=== PATIENT | male | born 1975 | race Caucasian/White ===

== ENCOUNTER 2018-11-03 17:33 | Inpatient (IN) | payer MEDICAID, OTHER ==
--- NOTE | 2018-11-03 20:48 | XRay Report ---
PROCEDURE: XR FOOT 3+V RT TECHNIQUE: Frontal, lateral, oblique views right foot HISTORY: puncture wound with redness,pain,swelling stepped on a nail. Injury on the bottom of the nallely t. COMPARISONS: None FINDINGS: There is diffuse soft tissue swelling of the forefoot. There is no evidence of gas within the soft tissues. There is no evidence of radiopaque foreign body. The bony structures are without evidence of fracture, subluxation, lytic or blastic change or periost eal reaction. IMPRESSION: 1. Soft tissue swelling without plain film evidence of acute bony abnormality. If further imaging is required, MRI may be helpful. This document is electronically signed by Sarah Gonzales MD., November 03 2018 08:46:52 PM ET
[2018-11-03] MEDS ORDERED: NACL 0.9% 1000 ML IV ONE (21:46)
[2018-11-03] MEDS ORDERED: CLEOCIN 900 MG/50 mL 900 MG/50 ML BAG IV ONE (21:48)
[2018-11-03] MEDS ORDERED: BOOSTRIX IM ONE (21:52)
[2018-11-03 22:20] LABS: Basophils % (Auto) 0.2 % (0.0-1.8); Eosinophils # (Auto) 0.1 K/mm3 (0.0-0.4); Hematocrit 45.3 % (35.5-45.6); Hemoglobin 14.6 gm/dl (11.8-15.2); Lymphocytes # (Auto) 1.8 K/mm3 (1.2-5.4); Lymphocytes % (Auto) 13.3 % (13.4-35.0); Mean Corpuscular HGB Conc 32 % (32-34); Mean Corpuscular Volume 80 fl (84-94); Monocytes # (Auto) 1.2 K/mm3 (0.0-0.8); Monocytes % (Auto) 8.4 % (0.0-7.3); Platelet Count 302 K/mm3 (140-440); Red Blood Count 5.68 M/mm3 (3.65-5.03); Red Cell Distribution Width 13.4 % (13.2-15.2)
--- NOTE | 2018-11-03 22:22 | Emergency Department Report ---
- General Chief complaint: Extremity Injury, Lower Stated complaint: FOOT INFECTED Time Seen by Provider: 11/03/18 21:22 Source: patient Mode of arrival: Ambulatory Limitations: Language Barrier - History of Present Illness Initial comments: This is a 43-year-old male nontoxic, well nourished in appearance, no acute signs of distress presents to the ED with c/o of left foot swelling with purulent drainage. Patient noted that he stepped into a mila nail 2 weeks ago. Patient denies any stable tetanus. Patient did state he had fevers for the past couple days. Patient denies any numbness, tingling, headache or stiff neck. Denies any chest pressure the blood. Denies any allergies. MD complaint: abscess/boil -: week(s) (3) Tetanus Up to Date: no Location: [facility] Severity: moderate Severity scale (0 -10): 8 Quality: aching Consistency: constant Improves with: none Worsens with: none Associated symptoms: fever, chills Treatments Prior to Arrival: none - Related Data Allergies Allergy/AdvReac Type Severity Reaction Status Date / Time No Known Allergies Allergy Unverified 11/03/18 17:41 Abscess Boil HPI - HPI Chief Complaint: Extremity Injury, Lower Stated Complaint: FOOT INFECTED Time Seen by Provider: 11/03/18 21:22 Allergies/Adverse Reactions: Allergies Allergy/AdvReac Type Severity Reaction Status Date / Time No Known Allergies Allergy Unverified 11/03/18 17:41 ED Review of Systems ROS: Stated complaint: FOOT INFECTED Other details as noted in HPI Constitutional: denies: chills, fever Eyes: denies: eye pain, eye discharge, vision change ENT: denies: ear pain, throat pain Respiratory: denies: cough, shortness of breath, wheezing Cardiovascular: denies: chest pain, palpitations Endocrine: no symptoms reported Gastrointestinal: denies: abdominal pain, nausea, diarrhea Genitourinary: denies: urgency, dysuria Musculoskeletal: denies: back pain, joint swelling, arthralgia Skin: denies: rash, lesions Neurological: denies: headache, weakness, paresthesias Psychiatric: denies: anxiety, depression Hematological/Lymphatic: denies: easy bleeding, easy bruising ED Past Medical Hx - Past Medical History Previous Medical History?: No - Surgical History Past Surgical History?: No - Social History Smoking Status: Never Smoker Substance Use Type: None ED Physical Exam - General Limitations: Language Barrier General appearance: alert, in no apparent distress - Head Head exam: Present: atraumatic, normocephalic - Extremities Exam Extremities exam: Present: normal inspection, full ROM, tenderness, normal capillary refill. Absent: joint swelling - Expanded Lower Extremity Exam Left Hip exam: Present: normal inspection, full ROM. Absent: tenderness, swelling Upper Leg exam: Present: normal inspection, full ROM. Absent: tenderness, swelling Knee exam: Present: normal inspection, full ROM. Absent: tenderness, swelling Lower Leg exam: Present: normal inspection, full ROM. Absent: tenderness, swelling Ankle exam: Present: normal inspection, full ROM, tenderness, swelling, erythema. Absent: abrasion, laceration, ecchymosis, deformity, crepidus, dislocation Foot/Toe exam: Present: normal inspection, full ROM, tenderness, swelling, abrasion, erythema, puncture wound. Absent: laceration, ecchymosis, deformity, crepidus, dislocation, amputation, foreign body, calcaneal tenderness, tenderness at base of 5th metatarsal, nail avulsion, subungual hematoma Neuro vascular tendon exam: Present: no vascular compromise Gait: Positive: unable to bear weight - Back Exam Back exam: Present: normal inspection, full ROM - Neurological Exam Neurological exam: Present: alert, oriented X3 - Psychiatric Psychiatric exam: Present: normal affect, normal mood - Skin Skin exam: Present: warm, dry, intact, normal color. Absent: rash ED Course Vital Signs 11/03/18 19:07 Temperature 97.3 F L Pulse Rate 117 H Respiratory 18 Rate Blood Pressure 167/99 O2 Sat by Pulse 100 Oximetry - Reevaluation(s) Reevaluation #1: 11/03/18 22:19 Patient is speaking in full sentences with no signs of distress noted. - Consultations Consultation #1: 11/03/18 22:02 Patient has been consulted with Dr. Ramos about patient history, physical exam, and examined and screened patient and agrees to ED plan of care and admission. Consultation #2: 11/03/18 22:20 Patient has been consulted with Mikayla Kennedy about patient history, physical exam, and agrees for admission with hospitalist. ED Medical Decision Making - Medical Decision Making This is a 43-year-old male who presents with left leg cellulitis. Patient is stable was examined by me and Dr. Ramos. Last obtained. Patient was consulted with Dr. Arredondo and admitted with Dr. Thomas hospitalist. X-ray has been obtained and does not show crusted mellitus. I did give patient fluids as well as clindamycin 900 IV. At time of admission, the patient does not seem toxic or ill in appearance. No acute signs of distress noted. Patient agrees to admission treatment plan of care. No further questions noted by the patient. Critical care attestation.: If time is entered above; I have spent that time in minutes in the direct care of this critically ill patient, excluding procedure time. ED Disposition Clinical Impression: Cellulitis of left foot Open wound of foot Qualifiers: Encounter type: initial encounter Laterality: left Qualified Code(s): S91.302A - Unspecified open wound, left foot, initial encounter Disposition: OP ADMIT IP TO THIS HOSP Is pt being admited?: Yes Condition: Stable
[2018-11-03 22:36] LABS: BUN/Creatinine Ratio 28; Blood Urea Nitrogen 17 mg/dL (9-20); Calcium 9.3 mg/dL (8.4-10.2); Hemolysis Index 1
[2018-11-03] MEDS ORDERED: VANCOMYCIN PHARMACY TO DOSE IV SCH (23:00)
[2018-11-03] MEDS ORDERED: VANCOMYCIN/NS 1 GM/250 ML 1 GM/250 ML BAG IV SCH (23:26)
--- NOTE | 2018-11-03 23:28 | History and Physical Report ---
History of Present Illness Date of examination: 11/03/18 History of present illness: 43-year-old man, obese with no medical problems comes emergency room because 2 weeks ago he stepped on a nail. His left foot became red, swollen and started draining bloody discharge, painful. Admits to fevers, chills. In the ER he r eceived a tetanus shot, status post clindamycin Review of systems Constitutional: no weight loss Ears, eyes, nose, mouth and throat: no nasal congestion, no nasal discharge, no sinus pressure, no vision change, no red eye. Neck: No neck pain or rigidity. Cardiovascular: no palpitations, chest pain Respiratory: no cough, shortness of breath Gastrointestinal: no hematochezia, abdominal pain Genitourinary : no frequency , no hematuria Musculoskeletal: no joint swelling or muscle ache Integumentary: no rash, no pruritis Neurological: no parathesias, no focal weakness Endocrine: no cold or heat intolerance, no polyuria or polydipsia Hematologic/Lymphatic: no easy bruising, no easy bleeding, no gland swelling Allergic/Immunologic: no urticaria, no angioedema. PAST MEDICAL HISTORY: Obesity PAST SURGICAL HISTORY: None SOCIAL HISTORY: Denies alcohol, drugs, tobacco FAMILY HISTORY: Hypertension Medications and Allergies Allergies Allergy/AdvReac Type Severity Reaction Status Date / Time No Known Allergies Allergy Unverified 11/03/18 17:41 Home Medications Medication Instructions Recorded Confirmed Last Taken Type No Known Home Medications [No 11/04/18 11/04/18 Unknown History Reported Home Medications] Exam - Physical Exam Narrative exam: General Apperance: The patient lying in bed, breathing comfortable HEENT: Normocephalic, atraumatic. Pupils equally round and reactive to light, EOMI, no sclericterus or JVD or thyromegaly or nodule. , no carotid bruit, mucous membranes moist, no exudate or erythema Heart: S1-S2, regular is rhythm Lungs: Clear to auscultation bilaterally, breathing comfortable Abdomen: Positive bowel sounds, soft, nontender, nondistended, no organomegaly Extremities: Left foot swollen including the toes, positive erythema, tender to touch, blister on top of the foot, puncture site at the bottom, positive drainage No cyanosis clubbing Skin: no rash, nodule, warm and dry Neuro: cranial nerves 2-12 intact, speech is fluent, motor/sensory intact - Constitutional Vitals: Temp Pulse Resp BP Pulse Ox 97.3 F L 117 H 18 167/99 100 11/03/18 19:07 11/03/18 19:07 11/03/18 19:07 11/03/18 19:07 11/03/18 19:07 Results - Labs CBC & Chem 7: 11/03/18 21:57 11/03/18 21:57 Labs: Abnormal lab results 11/03/18 11/03/18 Range/Units 21:57 21:57 WBC 13.9 H (4.5-11.0) K/mm3 RBC 5.68 H (3.65-5.03) M/mm3 MCV 80 L (84-94) fl MCH 26 L (28-32) pg Lymph % (Auto) 13.3 L (13.4-35.0) % [place] % (Auto) 8.4 H (0.0-7.3) % [place] # 1.2 H (0.0-0.8) K/mm3 Seg Neutrophils % 77.1 H (40.0-70.0) % Seg Neutrophils # 10.7 H (1.8-7.7) K/mm3 Sodium 133 L (137-145) mmol/L Chloride 90.9 L (98-107) mmol/L Creatinine 0.6 L (0.8-1.5) mg/dL Glucose 324 H (75-100) mg/dL - Imaging and Cardiology EKG: image reviewed Assessment and Plan X-ray of which reviewed Assessment Cellulitis and abscess of left foot New-onset diabetes Obesity Plan Admit to medicine Start IV fluid, start vancomycin, Zosyn Orthopedic was consulted in the emergency room IV morphine, DVT prophylaxis Check fingersticks, insulin sliding scale Consult dietary for diabetes education
[2018-11-04] MEDS ORDERED: D50W (25GM) Syringe IV PRN (00:01)
[2018-11-04] MEDS: ZOSYN/NS 4.5GM/100ML 4.5 GM/100 ML VIAL IV SCH ×4 (00:16→23:17)
[2018-11-04] MEDS ORDERED: HumuLIN R ONE (00:27)
[2018-11-04] MEDS: HumuLIN R SUB-Q SCH ×5 (00:28→23:20)
[2018-11-04] MEDS: VANCOMYCIN 2,000 MG in NACL 0.9% 500 ML 500 ML IV SCH ×2 (01:20→08:40)
[2018-11-04] MEDS ORDERED: TYLENOL PO PRN (04:10)
[2018-11-04] MEDS ORDERED: MORPHINE IV PRN (04:10)
[2018-11-04] MEDS ORDERED: SODIUM CHLORIDE FLUSH SYRINGE 10 ML IV PRN (04:10)
[2018-11-04] MEDS ORDERED: ZOFRAN IV PRN (04:10)
[2018-11-04 07:12] LABS: Basophils # (Auto) 0.1 K/mm3 (0.0-0.1); Basophils % (Auto) 0.7 % (0.0-1.8); Eosinophils # (Auto) 0.3 K/mm3 (0.0-0.4); Eosinophils % (Auto) 3.4 % (0.0-4.3); Hematocrit 40.8 % (35.5-45.6); Hemoglobin 13.4 gm/dl (11.8-15.2); Lymphocytes # (Auto) 1.9 K/mm3 (1.2-5.4); Lymphocytes % (Auto) 20.4 % (13.4-35.0); Mean Corpuscular HGB Conc 33 % (32-34); Mean Corpuscular Volume 80 fl (84-94); Monocytes % (Auto) 10.1 % (0.0-7.3); Platelet Count 258 K/mm3 (140-440); Red Blood Count 5.14 M/mm3 (3.65-5.03); Red Cell Distribution Width 12.9 % (13.2-15.2)
[2018-11-04 07:57] LABS: BUN/Creatinine Ratio 30; Blood Urea Nitrogen 12 mg/dL (9-20); Calcium 8.1 mg/dL (8.4-10.2); Hemolysis Index 19
[2018-11-04] MEDS: SODIUM CHLORIDE FLUSH SYRINGE 10 ML IV SCH ×2 (09:05→23:22)
[2018-11-04] MEDS: LOVENOX SUB-Q SCH (10:10)
--- NOTE | 2018-11-04 13:49 | Progress Note ---
Assessment and Plan Cellulitis and abscess of left foot New-onset diabetes Obesity Plan cont IV fluid, cont vancomycin, Zosyn Orthopedic was consulted in the emergency room cont IV morphine for pain, DVT prophylaxis Check fingersticks, insulin sliding scale and add long acting Consulted dietary for diabetes education Brief History: 43-year-old man, obese with no medical problems comes emergency room because 2 weeks ago he stepped on a nail. His left foot became red, swollen and started draining bloody discharge, painful. Left foot xry: 1. Soft tissue swelling without plain film evidence of acute bony abnormality. If further imaging is required, MRI may be helpful. Subjective Date of service: 11/04/18 Interval history: Patient was seen and examined c/o right foot pain, tolerating diet had wound eval today Objective - Constitutional Vitals: Vital Signs - 12hr 11/04/18 11/04/18 04:07 08:51 Temperature 98.2 F Pulse Rate 88 Respiratory 18 20 Rate Blood Pressure 132/80 O2 Sat by Pulse 96 96 Oximetry General appearance: Present: no acute distress, well-nourished - EENT Eyes: PERRL, EOM intact ENT: hearing intact, clear oral mucosa Ears: bilateral: normal - Neck Neck: supple, normal ROM - Respiratory Respiratory effort: normal Respiratory: bilateral: CTA - Cardiovascular Rhythm: regular Heart Sounds: Present: S1 & S2. Absent: gallop, rub Extremities: pulses intact, No edema, normal color, Full ROM - Gastrointestinal General gastrointestinal: Present: soft, non-tender, non-distended, normal bowel sounds - Integumentary Integumentary: clear, warm, dry - Musculoskeletal Musculoskeletal: other (right foot with wound dressing) - Neurologic Neurologic: moves all extremities - Psychiatric Psychiatric: memory intact, appropriate mood/affect, intact judgment & insight - Labs CBC & Chem 7: 11/04/18 06:51 11/04/18 06:51 Labs: Abnormal lab results 11/03/18 11/03/18 11/04/18 Range/Units 21:57 21:57 00:26 WBC 13.9 H (4.5-11.0) K/mm3 RBC 5.68 H (3.65-5.03) M/mm3 MCV 80 L (84-94) fl MCH 26 L (28-32) pg RDW (13.2-15.2) % Lymph % (Auto) 13.3 L (13.4-35.0) % [place] % (Auto) 8.4 H (0.0-7.3) % [place] # 1.2 H (0.0-0.8) K/mm3 Seg Neutrophils % 77.1 H (40.0-70.0) % Seg Neutrophils # 10.7 H (1.8-7.7) K/mm3 Sodium 133 L (137-145) mmol/L Chloride 90.9 L (98-107) mmol/L Creatinine 0.6 L (0.8-1.5) mg/dL Glucose 324 H (75-100) mg/dL POC Glucose 236 H (70-105) Calcium (8.4-10.2) mg/dL 11/04/18 11/04/18 11/04/18 Range/Units 06:51 06:51 07:42 WBC (4.5-11.0) K/mm3 RBC 5.14 H (3.65-5.03) M/mm3 MCV 80 L (84-94) fl MCH 26 L (28-32) pg RDW 12.9 L (13.2-15.2) % Lymph % (Auto) (13.4-35.0) % [place] % (Auto) 10.1 H (0.0-7.3) % [place] # 1.0 H (0.0-0.8) K/mm3 Seg Neutrophils % (40.0-70.0) % Seg Neutrophils # (1.8-7.7) K/mm3 Sodium (137-145) mmol/L Chloride (98-107) mmol/L Creatinine 0.4 L (0.8-1.5) mg/dL Glucose 218 H (75-100) mg/dL POC Glucose 190 H (70-105) Calcium 8.1 L (8.4-10.2) mg/dL 11/04/18 Range/Units 11:55 WBC (4.5-11.0) K/mm3 RBC (3.65-5.03) M/mm3 MCV (84-94) fl MCH (28-32) pg RDW (13.2-15.2) % Lymph % (Auto) (13.4-35.0) % [place] % (Auto) (0.0-7.3) % [place] # (0.0-0.8) K/mm3 Seg Neutrophils % (40.0-70.0) % Seg Neutrophils # (1.8-7.7) K/mm3 Sodium (137-145) mmol/L Chloride (98-107) mmol/L Creatinine (0.8-1.5) mg/dL Glucose (75-100) mg/dL POC Glucose 212 H (70-105) Calcium (8.4-10.2) mg/dL
[2018-11-04] MEDS: NACL 0.9% 1000 ML 1,000 ML IV SCH (14:14)
[2018-11-04] MEDS: VANCOMYCIN 1,750 MG in NACL 0.9% 500 ML 500 ML IV SCH (17:26)
[2018-11-05] MEDS: VANCOMYCIN 1,750 MG in NACL 0.9% 500 ML 500 ML IV SCH ×2 (02:06→12:13)
[2018-11-05] MEDS: NACL 0.9% 1000 ML 1,000 ML IV SCH ×2 (04:36→14:58)
[2018-11-05] MEDS: ZOSYN/NS 4.5GM/100ML 4.5 GM/100 ML VIAL IV SCH ×3 (06:33→22:40)
[2018-11-05] MEDS: HumuLIN R SUB-Q SCH ×4 (07:30→22:42)
[2018-11-05] MEDS: LOVENOX SUB-Q SCH (10:00)
[2018-11-05] MEDS: SODIUM CHLORIDE FLUSH SYRINGE 10 ML IV SCH ×2 (12:16→22:44)
--- NOTE | 2018-11-05 13:33 | Progress Note ---
Assessment and Plan Cellulitis and abscess of left foot - cont IV fluid, cont vancomycin, Zosyn - Orthopedic was consulted in the emergency room - s/p Incision and drainage of right foot today - cont IV morphine for pain, follow surgical Cx New-onset diabetes - cont to Check fingersticks, insulin sliding scale and add long acting - check HbA1c HTN, will add Norvasc Obesity, dietary recommendation when stable DVt Px, lovenox Brief History: 43-year-old man, obese with no medical problems comes emergency room because 2 weeks ago he stepped on a nail. His left foot became red, swollen and started draining bloody discharge, painful. Left foot xry: 1. Soft tissue swelling without plain film evidence of acute bony abnormality. If further imaging is required, MRI may be helpful. Subjective Date of service: 11/05/18 Interval history: Patient was seen and examined s/p Incision and drainage of right foot today Objective - Exam Narrative Exam: General appearance: Present: no acute distress, well-nourished - EENT Eyes: PERRL, EOM intact ENT: hearing intact, clear oral mucosa Ears: bilateral: normal - Neck Neck: supple, normal ROM - Respiratory Respiratory effort: normal Respiratory: bilateral: CTA - Cardiovascular Rhythm: regular Heart Sounds: Present: S1 & S2. Absent: gallop, rub Extremities: pulses intact, No edema, normal color, Full ROM - Gastrointestinal General gastrointestinal: Present: soft, non-tender, non-distended, normal bowel sounds - Integumentary Integumentary: clear, warm, dry - Musculoskeletal Musculoskeletal: other (right foot with wound dressing) - Neurologic Neurologic: moves all extremities - Psychiatric Psychiatric: memory intact, appropriate mood/affect, intact judgment & insight - Constitutional Vitals: Vital Signs - 12hr 11/05/18 11/05/18 11/05/18 04:36 08:51 11:12 Temperature 98.2 F Pulse Rate 83 Respiratory 20 20 Rate Blood Pressure 147/76 O2 Sat by Pulse 97 97 98 Oximetry 11/05/18 12:18 Temperature 98.0 F Pulse Rate 79 Respiratory 16 Rate Blood Pressure 139/76 O2 Sat by Pulse 98 Oximetry - Labs CBC & Chem 7: 11/04/18 06:51 11/04/18 06:51 Labs: Abnormal lab results 11/04/18 11/04/18 11/05/18 Range/Units 16:44 21:35 07:37 POC Glucose 234 H 235 H 196 H (70-105) 11/05/18 Range/Units 11:39 POC Glucose 193 H (70-105)
--- NOTE | 2018-11-05 18:08 | Procedure Note ---
Date of procedure: 11/05/18 Pre-op diagnosis: abscess right foot Post-op diagnosis: same Procedure: Incision and drainage right foot Procedure The patient's right foot was prepped and draped in the usual manner at the bedside. A timeout procedure was done to identify the patient and the correct incision site Using half percent Marcaine and lidocaine the skin overlying the abscess was anesthetized followed by incising with an #11 blade with return of blood and pus from the dorsal surface the wound was then enlarged and probed with a Q-tip applicator next the saline solution was used to irrigate the fold this was then followed by packing with iodoform gauze. Dressings were applied the patient tolerated the procedure there were no complications Anesthesia: local Surgeon: GENESIS OGDEN Estimated blood loss: minimal Condition: stable Disposition: observation
[2018-11-06] MEDS: VANCOMYCIN 2,000 MG in NACL 0.9% 500 ML 500 ML IV SCH ×4 (00:26→23:01)
[2018-11-06] MEDS: NACL 0.9% 1000 ML 1,000 ML IV SCH ×2 (00:46→13:46)
[2018-11-06] MEDS: ZOSYN/NS 4.5GM/100ML 4.5 GM/100 ML VIAL IV SCH ×2 (05:00→13:39)
[2018-11-06 07:31] LABS: Basophils % (Auto) 0.5 % (0.0-1.8); Eosinophils # (Auto) 0.5 K/mm3 (0.0-0.4); Eosinophils % (Auto) 5.9 % (0.0-4.3); Hematocrit 39.3 % (35.5-45.6); Hemoglobin 12.8 gm/dl (11.8-15.2); Lymphocytes % (Auto) 24.7 % (13.4-35.0); Mean Corpuscular HGB Conc 33 % (32-34); Mean Corpuscular Volume 79 fl (84-94); Monocytes # (Auto) 0.8 K/mm3 (0.0-0.8); Monocytes % (Auto) 9.1 % (0.0-7.3); Platelet Count 291 K/mm3 (140-440); Red Blood Count 4.95 M/mm3 (3.65-5.03); Red Cell Distribution Width 12.8 % (13.2-15.2)
[2018-11-06 07:55] LABS: BUN/Creatinine Ratio 14; Blood Urea Nitrogen 7 mg/dL (9-20); Calcium 8.2 mg/dL (8.4-10.2); Hemolysis Index 1
[2018-11-06] MEDS: HumuLIN R SUB-Q SCH ×4 (09:14→22:59)
[2018-11-06] MEDS: NORVASC PO SCH (10:50)
[2018-11-06] MEDS: LOVENOX SUB-Q SCH (10:51)
[2018-11-06] MEDS: SODIUM CHLORIDE FLUSH SYRINGE 10 ML IV SCH ×2 (13:45→23:00)
--- NOTE | 2018-11-06 13:54 | Progress Note ---
Assessment and Plan Cellulitis and abscess of left foot - cont IV fluid, cont vancomycin, Zosyn, consult ID for abx recommendation - Orthopedic was consulted in the emergency room - s/p Incision and drainage of right foot 11/05/18 - cont IV morphine for pain, follow surgical Cx New-onset diabetes - cont to Check fingersticks, insulin sliding scale and add long acting - HbA1c 10.2 HTN, cont Norvasc Obesity, dietary recommendation when stable DVt Px, lovenox Brief History: 43-year-old man, obese with no medical problems comes emergency room because 2 weeks ago he stepped on a nail. His left foot became red, swollen and started draining bloody discharge, painful. Left foot xry: 1. Soft tissue swelling without plain film evidence of acute bony abnormality. If further imaging is required, MRI may be helpful. Subjective Date of service: 11/06/18 Interval history: Patient was seen and examined s/p Incision and drainage of right foot 11/05/18 tolerating diet, final wound cx pending Objective - Exam Narrative Exam: General appearance: Present: no acute distress, well-nourished - EENT Eyes: PERRL, EOM intact ENT: hearing intact, clear oral mucosa Ears: bilateral: normal - Neck Neck: supple, normal ROM - Respiratory Respiratory effort: normal Respiratory: bilateral: CTA - Cardiovascular Rhythm: regular Heart Sounds: Present: S1 & S2. Absent: gallop, rub Extremities: pulses intact, No edema, normal color, Full ROM - Gastrointestinal General gastrointestinal: Present: soft, non-tender, non-distended, normal bowel sounds - Integumentary Integumentary: clear, warm, dry - Musculoskeletal Musculoskeletal: other (right foot with wound dressing) - Neurologic Neurologic: moves all extremities - Psychiatric Psychiatric: memory intact, appropriate mood/affect, intact judgment & insight - Constitutional Vitals: Vital Signs - 12hr 11/06/18 11/06/18 11/06/18 05:40 10:49 10:50 Temperature 98.0 F Pulse Rate 68 Respiratory 20 Rate Blood Pressure 144/83 135/74 135/74 O2 Sat by Pulse 98 Oximetry 11/06/18 12:08 Temperature 98.2 F Pulse Rate 63 Respiratory 20 Rate Blood Pressure 134/76 O2 Sat by Pulse 98 Oximetry - Labs CBC & Chem 7: 11/06/18 07:12 11/06/18 07:12 Labs: Abnormal lab results 11/05/18 11/05/18 11/06/18 Range/Units 16:23 21:38 07:12 MCV (84-94) fl MCH (28-32) pg RDW (13.2-15.2) % [place] % (Auto) (0.0-7.3) % Eos % (Auto) (0.0-4.3) % Eos # (0.0-0.4) K/mm3 BUN (9-20) mg/dL Creatinine (0.8-1.5) mg/dL Glucose (75-100) mg/dL POC Glucose 180 H 174 H (70-105) Hemoglobin A1c 10.2 H (4-6) % Calcium (8.4-10.2) mg/dL 11/06/18 11/06/18 11/06/18 Range/Units 07:12 07:12 07:53 MCV 79 L (84-94) fl MCH 26 L (28-32) pg RDW 12.8 L (13.2-15.2) % [place] % (Auto) 9.1 H (0.0-7.3) % Eos % (Auto) 5.9 H (0.0-4.3) % Eos # 0.5 H (0.0-0.4) K/mm3 BUN 7 L (9-20) mg/dL Creatinine 0.5 L (0.8-1.5) mg/dL Glucose 206 H (75-100) mg/dL POC Glucose 192 H (70-105) Hemoglobin A1c (4-6) % Calcium 8.2 L (8.4-10.2) mg/dL 11/06/18 Range/Units 12:12 MCV (84-94) fl MCH (28-32) pg RDW (13.2-15.2) % [place] % (Auto) (0.0-7.3) % Eos % (Auto) (0.0-4.3) % Eos # (0.0-0.4) K/mm3 BUN (9-20) mg/dL Creatinine (0.8-1.5) mg/dL Glucose (75-100) mg/dL POC Glucose 213 H (70-105) Hemoglobin A1c (4-6) % Calcium (8.4-10.2) mg/dL
--- NOTE | 2018-11-06 17:05 | Consultation ---
History of Present Illness - Reason for Consult Consult date: 11/06/18 Cellulitis and Abscess of left foot Requesting physician: WOLFGANG MONTALVO - History of Present Illness This patient is a 43-year-old man with no past medical history that presents to the ED on 11/03/18 with complaints of right foot swelling with purulent drainage after stepping onto a mila nail 2 weeks ago. He received a tetanus shot in the ED. On admission WBC 13.9, Creatinine 0.5, Hemoglobin A1C 10.2, lactic Acid 1.50, Temperature 97.3, Heart rate 117, BP 167/69, Blood cultures were drawn and show no growth to date, Right foot wound cultures grew Staph Aureus and Beta Henolytic Strep Group B. Foot Xray shows soft tissue swelling without plain film evidence of acute bony abnormality . 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 After a few days his right foot started bleeding and became very painful. He attempted to "squeeze the pus and blood out" but his foot became worse. He denies alcohol, tobacco or illegal drug use. Review of Systems: General: no fever, chills, nightsweats, unintentional weight change, or change in appetite Cutaneous: no rash, pruritus Head: no headaches or injury Eyes: no changes in vision, eye pain, double vision Ears: no ear pain, ear discharge, ringing or hearing loss Nose: no nose bleeding, stuffiness Mouth & throat: no bleeding gums, no horseness, no dental problems, or swollen glands Neck: no pain, node enlargement/lumps, tyroid enlargement or tenderness Respiratory: no cough, wheezing, sputum, hemoptysis, pleuritic chest pain Cardiovascular: no chest pain, cyanosis, SIMS, orthopnea Musculoskeletal: right foot wound with serosanguinous drainage- + dressing Gastrointestinal: no nausea, vomiting, hematemesis, diarrhea, constipation, melena, bright red blood in stools, fecal incontinence, jaundice Genitourinary/Reproductive: no frequent urination, no dysuria, hematuria, incontinence Neurogical: no seizures, no headaches, no weakness, no paresthesias, Psychiatric: stable mood; no excessive anxiety, sadness or moodiness Medications and Allergies Allergies Allergy/AdvReac Type Severity Reaction Status Date / Time No Known Allergies Allergy Unverified 11/03/18 17:41 Home Medications Medication Instructions Recorded Confirmed Last Taken Type No Known Home Medications [No 11/04/18 11/04/18 Unknown History Reported Home Medications] Active Meds: Active Medications Acetaminophen (Tylenol) 650 mg PO Q4H PRN PRN Reason: Pain MILD(1-3)/Fever >100.5/QUINONES Amlodipine Besylate (Norvasc) 10 mg PO QDAY [facility] Last Admin: 11/06/18 10:50 Dose: 10 mg Documented by: Dextrose (D50w (25gm) Syringe) 50 ml IV PRN PRN PRN Reason: Hypoglycemia Enoxaparin Sodium (Lovenox) 40 mg SUB-Q QDAY [facility] Last Admin: 11/06/18 10:51 Dose: 40 mg Documented by: Piperacillin Sod/Tazobactam Sod (Zosyn/Ns 4.5gm/100ml) 4.5 gm in 100 mls @ 200 mls/hr IV Q8HR [facility]; Protocol Last Admin: 11/06/18 13:39 Dose: 200 mls/hr Documented by: Sodium Chloride (Nacl 0.9% 1000 Ml) 1,000 mls @ 125 mls/hr IV DIRECT [facility] Last Admin: 11/06/18 13:46 Dose: 125 mls/hr Documented by: Vancomycin HCl 2,000 mg/ (Sodium Chloride) 540 mls @ 250 mls/hr IV Q8HR [facility] Last Admin: 11/06/18 15:24 Dose: 250 mls/hr Documented by: Insulin Human Isoph/Insulin Regular (Humulin 70/30) 10 unit SUB-Q BIDDIAB [facility] Last Admin: 11/06/18 09:15 Dose: 10 unit Documented by: Insulin Human Regular (Humulin R) 0 units SUB-Q ACHS [facility]; Protocol Last Admin: 11/06/18 13:43 Dose: 4 units Documented by: Morphine Sulfate (Morphine) 2 mg IV Q4H PRN PRN Reason: Pain, Moderate (4-6) Last Admin: 11/05/18 13:49 Dose: 2 mg Documented by: Ondansetron HCl (Zofran) 4 mg IV Q8H PRN PRN Reason: Nausea And Vomiting Sodium Chloride (Sodium Chloride Flush Syringe 10 Ml) 10 ml IV BID [facility] Last Admin: 11/06/18 13:45 Dose: 10 ml Documented by: Sodium Chloride (Sodium Chloride Flush Syringe 10 Ml) 10 ml IV PRN PRN PRN Reason: LINE FLUSH Physical Examination - Physical Exam Narrative exam: Constitutional: Alert, cooperative. No acute distress Head, Ears, Nose: Normocephalic, atraumatic. External ears, nose normal Eyes: Conjunctivae/corneas clear. No icterus. No ptosis. Neck: Supple, no meningeal signs Oral: dentition good, no thrush Cardiovascular: S1, S2 normal. Respiratory: Good air entry, clear to auscultation bilaterally GI: Soft, non-tender; bowel sounds normal. No peritoneal signs Musculoskeletal:Per wound care wound measurement 4.0 x 4.5 x 0.1. Significant erythema, swelling and soft necrotic tissue. Right foot second metatarsal. wound measurement 2.0 X 2.5 with significant erythema and swelling to the toe. Right plantar wound measurement 1.0 x 1.0 x 4.0 with serous sanguineos and purulent drainage with significant swelling. Skin: same as above Hem/Lymphatic: No palpable cervical or supraclavicular nodes. No lymphangitis Psych: Mood ok. Affect normal Neurological: Awake, alert, oriented. - Constitutional Vitals: Vital Signs Temp Pulse Resp BP Pulse Ox 98.0 F 73 20 138/85 97 11/06/18 16:48 11/06/18 16:48 11/06/18 16:48 11/06/18 16:48 11/06/18 16:48 Temperature -Last 24 Hours Temperature 98.0 F Temperature 98.2 F Temperature 98.0 F Temperature 98.5 F Results - Labs CBC & Chem 7: 11/06/18 07:12 11/06/18 07:12 Labs: Abnormal lab results 11/05/18 11/06/18 11/06/18 Range/Units 21:38 07:12 07:12 MCV 79 L (84-94) fl MCH 26 L (28-32) pg RDW 12.8 L (13.2-15.2) % [place] % (Auto) 9.1 H (0.0-7.3) % Eos % (Auto) 5.9 H (0.0-4.3) % Eos # 0.5 H (0.0-0.4) K/mm3 BUN (9-20) mg/dL Creatinine (0.8-1.5) mg/dL Glucose (75-100) mg/dL POC Glucose 174 H (70-105) Hemoglobin A1c 10.2 H (4-6) % Calcium (8.4-10.2) mg/dL 11/06/18 11/06/18 11/06/18 Range/Units 07:12 07:53 12:12 MCV (84-94) fl MCH (28-32) pg RDW (13.2-15.2) % [place] % (Auto) (0.0-7.3) % Eos % (Auto) (0.0-4.3) % Eos # (0.0-0.4) K/mm3 BUN 7 L (9-20) mg/dL Creatinine 0.5 L (0.8-1.5) mg/dL Glucose 206 H (75-100) mg/dL POC Glucose 192 H 213 H (70-105) Hemoglobin A1c (4-6) % Calcium 8.2 L (8.4-10.2) mg/dL Assessment and Plan Cultures: 11/04/18 Right Foot:Wound : Beta Hemnolytic Strep Group B, Staph Aureus 11/03/18 Blood: no growth in 48 hours A/P: 43-year-old man with no past medical history that presents to the ED on 11/03/18 with complaints of left foot swelling with purulent drainage after stepping onto a rust nail 2 weeks ago. He received a tetanus shot in the ED. Now admitted with: 1. Sepsis on admission: evidenced by leukocytosis and tachycardia. Etiology right foot wound. No fever. Wound cultures grew beta hemolytic strep group B and Staph Aureus. Blood cultures show no growth to date. Currently being treated with Vancomycin and Zosyn. 2. Right Foot Wound/ Abscess: Per wound care wound measurement 4.0 x 4.5 x 0.1. Significant erythema, swelling and soft necrotic tissue. Right foot second metatarsal. wound measurement 2.0 X 2.5 with significant erythema and swelling to the toe. Right plantar wound measurement 1.0 x 1.0 x 4.0 with serous sanguineos and purulent drainage with significant swelling. Right foot xray shows soft tissue swelling without plain film evidence of acute bony abnormality. Wound cultures grew beta hemolytic strep group B and Staph aureus. s/p I & D of right foot. on 11/05/18.. Follow up surgical cultures and wound cultures for ID and JOANNA's. 3. Newly Diagnosed Type 2 Diabetic: on admission Hemoglobin A1C 10.2, Recommend tight glycemic control. 4. Morbid Obesity: Plan: Continue Vancomycin PK consult Start Cefepime 2 gms IV every 8 hours Start Flagyl 500mg IV every 8 hours Discontinue Zosyn Order CRP and ESR MRI with contrast ordered Arterial Dopplers ordered f/u wound cultures for ID & JOANNA's f/u blood cultures Contact precaution until MRSA is ruled out d/w Dr. Fadi Ji, [employer]ABLE [employer] [facility] M: [phone] O:[phone]
[2018-11-06] MEDS: FLAGYL 500 MG/100 ML 500 MG/100 ML BAG IV SCH ×2 (18:21→23:02)
[2018-11-06] MEDS: MAXIPIME/NS 2 GM/100 ML 2 GM/100 ML BAG IV SCH (19:55)
[2018-11-07] MEDS: MAXIPIME/NS 2 GM/100 ML 2 GM/100 ML BAG IV SCH ×4 (02:03→21:50)
[2018-11-07] MEDS: NACL 0.9% 1000 ML 1,000 ML IV SCH (06:21)
[2018-11-07] MEDS: FLAGYL 500 MG/100 ML 500 MG/100 ML BAG IV SCH ×3 (06:44→22:07)
--- NOTE | 2018-11-07 10:47 | Vascular Lab Report ---
PROCEDURE: VL ARTERIAL DUPLEX LE RT TECHNIQUE: Duplex Doppler ultrasound of either bilateral lower extremity arteries or arterial bypass grafts was performed with image documentation. HISTORY: right foot abscess COMPARISONS: None . FINDINGS: RIGHT LOWER EXTREMITY: Arterial waveforms: Triphasic in the distal iliac, common femoral artery, superficial femoral artery , popliteal artery, and posterior tibial artery . Biphasic waveform in the anterior tibial artery. Mo nophasic waveform in the dorsalis pedis. Thrombus: None . Stenosis: None . Color signal: Normal . Significant segmental velocity differential: None . Arterial bypass graft: Not present . Peak systolic velocity (cm/sec) are as follows: Right distal iliac artery: 186 Right common femoral artery 117 Right superficial femoral artery: 109 Right posterior tibial artery: 114 Right anterior tibial artery: 159 Right dorsalis pedis artery: 105 LEFT LOWER EXTREMITY: Arterial waveforms of the posterior tibial artery, anterior tibial artery, and dorsalis pedis artery: Triphasic . Thrombus: None . Stenosis: None . Color signal: Normal . Significant segmental velocity differential: None . Arterial bypass graft: Not present .Stenosis: None . Peak systolic velocity (cm/sec) are as follows: Left posterior tibial artery: 52 Left anterior tibial artery: 114 Left dorsalis pedis artery: 132 IMPRESSION: Monophasic waveform with spectral broadening of the right dorsalis pedis artery concerni ng for moderate to severe arterial insufficiency. This document is electronically signed by Diane Massey MD., November 07 2018 10:45:27 AM ET
[2018-11-07] MEDS: HumuLIN R SUB-Q SCH ×4 (11:20→22:56)
[2018-11-07] MEDS: VANCOMYCIN 2,000 MG in NACL 0.9% 500 ML 500 ML IV SCH ×3 (11:21→22:01)
--- NOTE | 2018-11-07 11:45 | Magnetic Resonance Report ---
MRI RIGHT FOOT WITHOUT AND WITH CONTRAST: 11/07/18 07:13:00 CLINICAL: Right foot abscess. COMPARISON:11/03/18 right foot x-ray TECHNIQUE: Sagittal, coronal and axial T1, coronal and axial T2 fat sat, sagittal STIR and sagittal, coronal and axial postcontrast T1 fat sat sequences on a 1.5 Yuridia magnet. 12 cc of Multihance was injected intravenously for the contrast portion of the exam and consent was obtained prior to the administration of contrast. FINDINGS: Diffuse soft tissue edema of the forefoot which is greater on the dorsum of the forefoot. An irregular abscess overlies the second metatarsal and measures 3.3 cm transverse dimension by 1.6 cm AP dimension by 2.6 cm craniocaudal dimension. The skin overlying the abscess appears to be interrupted and there is some air within the abscess. A second irregular abscess is on the plantar aspect of the forefoot and underlies the second MTP joint. It measures approximately 1.4 cm transverse which about 1.3 cm craniocaudal dimension by 2.9 cm AP dimension. This abscess extends into the space between the first and second toes and probably communicates with the larger dorsal abscess. There is subtle cortical erosion of the proximal phalanx of the second toe with decreased signal on T1 and increased signal on T2 and STIR. The rest of the bones have normal signal. IMPRESSION: 1. Abscesses on the dorsum and plantar aspect of the forefoot at the second toe which may communicate with each other via the deep soft tissues between the first and second toes. 2. Osteomyelitis involving the proximal phalanx of the second toe.
--- NOTE | 2018-11-07 12:03 | Progress Note ---
Assessment and Plan Cellulitis and abscess of left foot with osteomylitis - cont IV fluid, cont vancomycin, Zosyn, consult ID for abx recommendation - Orthopedic was consulted in the emergency room - s/p Incision and drainage of right foot 11/05/18 at bedside - cont IV morphine for pain, follow surgical Cx - will consult GS for further recommendation per ID New-onset diabetes - cont to Check fingersticks, insulin sliding scale and add long acting - HbA1c 10.2 HTN, cont Norvasc Obesity, dietary recommendation when stable DVt Px, lovenox Brief History: 43-year-old man, obese with no medical problems comes emergency room because 2 weeks ago he stepped on a nail. His left foot became red, swollen and started draining bloody discharge, painful. Left foot xry: 1. Soft tissue swelling without plain film evidence of acute bony abnormality. If further imaging is required, MRI may be helpful. MRI right foot: 1. Abscesses on the dorsum and plantar aspect of the forefoot at the second toe which may communicate with each other via the deep soft tissues between the first and second toes. 2. Osteomyelitis involving the proximal phalanx of the second toe. Subjective Date of service: 11/07/18 Interval history: Patient was seen and examined s/p Incision and drainage of right foot 11/05/18 tolerating diet, final wound cx pending Noted MRI result Objective - Exam Narrative Exam: General appearance: Present: no acute distress, well-nourished - EENT Eyes: PERRL, EOM intact ENT: hearing intact, clear oral mucosa Ears: bilateral: normal - Neck Neck: supple, normal ROM - Respiratory Respiratory effort: normal Respiratory: bilateral: CTA - Cardiovascular Rhythm: regular Heart Sounds: Present: S1 & S2. Absent: gallop, rub Extremities: pulses intact, No edema, normal color, Full ROM - Gastrointestinal General gastrointestinal: Present: soft, non-tender, non-distended, normal bowel sounds - Integumentary Integumentary: clear, warm, dry - Musculoskeletal Musculoskeletal: other (right foot with wound dressing) - Neurologic Neurologic: moves all extremities - Psychiatric Psychiatric: memory intact, appropriate mood/affect, intact judgment & insight - Constitutional Vitals: Vital Signs - 12hr 11/07/18 05:53 Temperature 98.3 F Pulse Rate 69 Respiratory 18 Rate Blood Pressure 139/76 O2 Sat by Pulse 98 Oximetry - Labs CBC & Chem 7: 11/06/18 07:12 11/06/18 07:12 Labs: Abnormal lab results 11/06/18 11/06/18 11/06/18 Range/Units 12:12 16:52 19:30 POC Glucose 213 H 229 H (70-105) C-Reactive Protein 3.20 H (0.00-1.30) mg/dL 11/06/18 11/07/18 Range/Units 21:29 08:19 POC Glucose 181 H 204 H (70-105) C-Reactive Protein (0.00-1.30) mg/dL
[2018-11-07] MEDS: GLUCOPHAGE PO SCH ×2 (13:33→18:48)
[2018-11-07] MEDS: NORVASC PO SCH (13:36)
--- NOTE | 2018-11-07 15:02 | Progress Note ---
Assessment and Plan Cultures: 11/04/18 Right Foot:Wound : Beta Hem Strep Group B, MRSA 11/03/18 Blood: no growth in 48 hours A/P: 43-year-old man with no past medical history that presents to the ED on 11/03/18 with complaints of left foot swelling with purulent drainage after stepping onto a rust nail 2 weeks ago. He received a tetanus shot in the ED. Now admitted with: 1. Sepsis on admission: evidenced by leukocytosis and tachycardia. Etiology right foot wound. No fever. Wound cultures grew beta hemolytic strep group B and Staph Aureus. Blood cultures show no growth to date. Currently being treated with Vancomycin and Zosyn. 2. Right Diabetic Foot Wound/ large Abscess/2nd toe osteomyelitis: Per wound care wound measurement 4.0 x 4.5 x 0.1. Significant erythema, swelling and soft necrotic tissue. Right foot second metatarsal. wound measurement 2.0 X 2.5 with significant erythema and swelling to the toe. Right plantar wound measurement 1.0 x 1.0 x 4.0 with serous sanguineos and purulent drainage with significant swelling. Right foot xray shows soft tissue swelling without plain film evidence of acute bony abnormality. Wound cultures grew beta hemolytic strep group B and Staph aureus. s/p I & D of right foot. on 11/05/18.. Follow up surgical cultures and wound cultures for ID and JOANNA's. CRP 3.2. MRI showed Abscesses 3.2x1.6x2.6 cm on the dorsum and plantar aspect of the forefoot at the second toe which may communicate with each other via the deep soft tissues between the first and s econd toes. Osteomyelitis involving the proximal phalanx of the second toe. Transcribed By: REF 3. Newly Diagnosed Type 2 Diabetic: on admission Hemoglobin A1C 10.2, Recommend tight glycemic control. 4. Morbid Obesity: Plan: Consider further debridement in the OR as abscess is large 3.2x1.6x2.6 cm and also to eval for necrotizing infection Continue Vancomycin PK consult Contact isolation Continue Cefepime 2 gms IV every 8 hours and Flagyl 500mg IV every 8 hours Arterial Dopplers ordered - pending Rounding on Saturday Barb Forbes MD Infectious Diseases Outside Rep[employer] [facility] M [phone] O [phone] Subjective Date of service: 11/07/18 Principal diagnosis: DM foot infection Interval history: Remains feeling better, still c/o foot pain, no fever Objective - Exam Narrative Exam: General appearance: Alert in NAD, conversant Eyes: anicteric sclerae, moist conjunctivae; no lid-lag; PERRLA HENT: Atraumatic; oropharynx clear with moist mucous membranes and no mucosal ulcerations/no oral thrush; normal hard and soft palate. Normal external ears. Neck: Trachea midline; supple, no thyromegaly or lymphadenopathy Lungs: CTA, with normal respiratory effort and no intercostal retractions CV: RRR, no murmurs Abdomen: Soft, non-tender; no masses or hepatosplenomegaly Extremities: right foot with marked edema and wound covered w dressings Skin: Normal temperature, turgor and texture; no rash, ulcers or subcutaneous nodules Psych: Appropriate affect, alert and oriented to person, place and time. Neuro: alert and oriented x 3. Moving all extermities - Constitutional Vitals: Vital Signs Temp Pulse Resp BP Pulse Ox 98.1 F 69 20 158/74 99 11/07/18 12:08 11/07/18 12:08 11/07/18 12:08 11/07/18 13:36 11/07/18 12:08 Temperature -Last 24 Hours Temperature 98.1 F Temperature 98.3 F Temperature 98.2 F Temperature 98.0 F - Labs CBC & Chem 7: 11/06/18 07:12 11/06/18 07:12 Labs: Abnormal lab results 11/06/18 11/06/18 11/06/18 Range/Units 16:52 19:30 21:29 POC Glucose 229 H 181 H (70-105) C-Reactive Protein 3.20 H (0.00-1.30) mg/dL 11/07/18 11/07/18 Range/Units 08:19 12:13 POC Glucose 204 H 212 H (70-105) C-Reactive Protein (0.00-1.30) mg/dL
[2018-11-07] MEDS: LOVENOX SUB-Q SCH (15:32)
--- NOTE | 2018-11-07 15:55 | Progress Note ---
Assessment and Plan abscess right foot s/p I & D doing well recommend - daily dressing changes and IVAB's, no need for further incision/debridement at this point Subjective Date of service: 11/07/18 Principal diagnosis: DM foot infection Interval history: no c/o's noted from patient, states foot feeling better per daughter present in room Objective Vital signs: Vital Signs - 12hr 11/07/18 11/07/18 11/07/18 05:53 12:08 13:36 Temperature 98.3 F 98.1 F Pulse Rate 69 69 Respiratory 18 20 Rate Blood Pressure 139/76 158/74 158/74 O2 Sat by Pulse 98 99 Oximetry Narrative Exam: right foot - packing removed from both dorsal and plantar surfaces, less redness now moderate drainage, wounds repacked with iodoform gauge... MRI scan right foot reviewed by me today, no abscess seen only iodoform gauge packing noted by my interpretation... - Labs CBC & BMP: 11/06/18 07:12 11/06/18 07:12 Labs: Abnormal lab results 11/06/18 11/06/18 11/06/18 Range/Units 16:52 19:30 21:29 POC Glucose 229 H 181 H (70-105) C-Reactive Protein 3.20 H (0.00-1.30) mg/dL 11/07/18 11/07/18 Range/Units 08:19 12:13 POC Glucose 204 H 212 H (70-105) C-Reactive Protein (0.00-1.30) mg/dL
[2018-11-07] MEDS: SODIUM CHLORIDE FLUSH SYRINGE 10 ML IV SCH ×2 (21:03→23:00)
[2018-11-08] MEDS: NACL 0.9% 1000 ML 1,000 ML IV SCH ×2 (02:54→21:23)
[2018-11-08] MEDS: FLAGYL 500 MG/100 ML 500 MG/100 ML BAG IV SCH ×3 (05:00→21:29)
[2018-11-08] MEDS: MAXIPIME/NS 2 GM/100 ML 2 GM/100 ML BAG IV SCH ×3 (05:53→21:25)
[2018-11-08] MEDS: VANCOMYCIN 2,000 MG in NACL 0.9% 500 ML 500 ML IV SCH ×2 (05:54→13:48)
[2018-11-08] MEDS: HumuLIN R SUB-Q SCH ×3 (07:30→16:30)
[2018-11-08] MEDS: GLUCOPHAGE PO SCH ×2 (08:00→17:00)
[2018-11-08] MEDS: LOVENOX SUB-Q SCH (09:54)
[2018-11-08] MEDS: NORVASC PO SCH (09:55)
[2018-11-08] MEDS: SODIUM CHLORIDE FLUSH SYRINGE 10 ML IV SCH (09:56)
--- NOTE | 2018-11-08 14:20 | Progress Note ---
Assessment and Plan Assessment and plan: 43-year-old man, obese with no medical problems comes emergency room because 2 weeks ago he stepped on a nail. His left foot became red, swollen and started draining bloody discharge, painful. Left foot xry: 1. Soft tissue swelling without plain film evidence of acute bony abnormality. If further imaging is required, MRI may be helpful. MRI right foot: 1. Abscesses on the dorsum and plantar aspect of the forefoot at the second toe which may communicate with each other via the deep soft tissues between the first and second toes. 2. Osteomyelitis involving the proximal phalanx of the second toe. Cellulitis and abscess of left foot with osteomylitis - cont IV fluid, cont vancomycin, Zosyn, consult ID for abx recommendation - Orthopedic was consulted in the emergency room - s/p Incision and drainage of right foot 11/05/18 at bedside - Dr apodaca review the MRI and said no abscess - cont IV morphine for pain New-onset diabetes - cont to Check fingersticks, insulin sliding scale and add long acting - HbA1c 10.2 HTN, cont Norvasc Obesity, dietary recommendation when stable DVt Px, lovenox Disposition; per ID recommendations. Dr Apodaca said no abscess. History Interval history: Patient was seen and developed this morning, patient denied any fever or chills. Management was explained to him. Hospitalist Physical - Physical exam Narrative exam: Not in cardiopulmonary distress. The patient appeared well nourished and normally developed. Vital signs as documented. Head exam is unremarkable. No scleral icterus . Neck is without jugular venous distension, thyromegaly, or carotid bruits. Lungs are clear to auscultation. Cardiac exam reveals regular rate and Rhythm. First and second heart sounds normal. No murmurs, rubs or gallops. Abdominal exam reveals normal bowel sounds, no masses, no organomegaly and no aortic enlargement. Extremities are nonedematous and both femoral and pedal pulses are normal. 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 No focal weakness. - Constitutional Vitals: Temp Pulse Resp BP Pulse Ox 97.6 F 77 20 132/87 99 11/08/18 12:04 11/08/18 12:04 11/08/18 12:04 11/08/18 12:04 11/08/18 12:04 General appearance: Present: no acute distress, well-nourished Results - Labs CBC & Chem 7: 11/06/18 07:12 11/06/18 07:12 Labs: Laboratory Last Values WBC 8.3 K/mm3 (4.5-11.0) 11/06/18 07:12 RBC 4.95 M/mm3 (3.65-5.03) 11/06/18 07:12 Hgb 12.8 gm/dl (11.8-15.2) 11/06/18 07:12 Hct 39.3 % (35.5-45.6) 11/06/18 07:12 MCV 79 fl (84-94) L 11/06/18 07:12 MCH 26 pg (28-32) L 11/06/18 07:12 MCHC 33 % (32-34) 11/06/18 07:12 RDW 12.8 % (13.2-15.2) L 11/06/18 07:12 Plt Count 291 K/mm3 (140-440) 11/06/18 07:12 Lymph % (Auto) 24.7 % (13.4-35.0) 11/06/18 07:12 [place] % (Auto) 9.1 % (0.0-7.3) H 11/06/18 07:12 Eos % (Auto) 5.9 % (0.0-4.3) H 11/06/18 07:12 Baso % (Auto) 0.5 % (0.0-1.8) 11/06/18 07:12 Lymph # 2.0 K/mm3 (1.2-5.4) 11/06/18 07:12 [place] # 0.8 K/mm3 (0.0-0.8) 11/06/18 07:12 Eos # 0.5 K/mm3 (0.0-0.4) H 11/06/18 07:12 Baso # 0.0 K/mm3 (0.0-0.1) 11/06/18 07:12 Seg Neutrophils % 59.8 % (40.0-70.0) 11/06/18 07:12 Seg Neutrophils # 4.9 K/mm3 (1.8-7.7) 11/06/18 07:12 ESR 48 mm/Hr (0-20) 11/06/18 19:30 Sodium 139 mmol/L (137-145) 11/06/18 07:12 Potassium 3.8 mmol/L (3.6-5.0) 11/06/18 07:12 Chloride 104.3 mmol/L (98-107) 11/06/18 07:12 Carbon Dioxide 27 mmol/L (22-30) 11/06/18 07:12 Anion Gap 12 mmol/L 11/06/18 07:12 BUN 7 mg/dL (9-20) L 11/06/18 07:12 Creatinine 0.5 mg/dL (0.8-1.5) L 11/06/18 07:12 Estimated GFR > 60 ml/min 11/06/18 07:12 BUN/Creatinine Ratio 14 % 11/06/18 07:12 Glucose 206 mg/dL (75-100) H 11/06/18 07:12 POC Glucose 225 (70-105) H 11/08/18 12:10 Hemoglobin A1c 10.2 % (4-6) H 11/06/18 07:12 Lactic Acid 1.30 mmol/L (0.7-2.0) 11/04/18 01:02 Calcium 8.2 mg/dL (8.4-10.2) L 11/06/18 07:12 C-Reactive Protein 3.20 mg/dL (0.00-1.30) H 11/06/18 19:30 Vancomycin Trough 8.5 ug/mL (5.0-20.0) 11/05/18 09:54 Active Medications - Current Medications Current Medications: Generic Name Dose Route Start Last Admin Trade Name Freq PRN Reason Stop Dose Admin Acetaminophen 650 mg 11/04/18 04:10 Tylenol PO Q4H PRN Pain MILD(1-3)/Fever >100.5/QUINONES Amlodipine Besylate 10 mg 11/06/18 10:00 11/08/18 09:55 Norvasc PO 10 mg QDAY RAMAN Administration Dextrose 50 ml 11/04/18 00:01 D50w (25gm) Syringe IV PRN PRN Hypoglycemia Enoxaparin Sodium 40 mg 11/04/18 10:00 11/08/18 09:54 Lovenox SUB-Q 40 mg QDAY RAMAN Administration Sodium Chloride 1,000 mls @ 125 mls/hr 11/04/18 05:00 11/08/18 02:54 Nacl 0.9% 1000 Ml IV 125 mls/hr DIRECT RAMAN Administration Vancomycin HCl 2,000 mg/ 540 mls @ 250 mls/hr 11/05/18 22:00 11/08/18 13:48 Sodium Chloride IV 250 mls/hr Q8HR RAMAN Administration Cefepime HCl 2 gm in 100 mls @ 200 mls/hr 11/06/18 18:00 11/08/18 13:48 Maxipime/Ns 2 Gm/100 Ml IV 200 mls/hr Q8HR RAMAN Administration Protocol Metronidazole 500 mg in 100 mls @ 100 mls/hr 11/06/18 18:00 11/08/18 13:48 Flagyl 500 Mg/100 Ml IV 100 mls/hr Q8HR RAMAN Administration Protocol Insulin Human Isoph/Insulin Regular 10 unit 11/06/18 08:00 11/08/18 08:00 Humulin 70/30 SUB-Q 10 unit BIDDIAB RAMAN Administration Insulin Human Regular 0 units 11/04/18 00:30 11/08/18 11:30 Humulin R SUB-Q 4 units ACHS RAMAN Administration Protocol Metformin HCl 500 mg 11/07/18 08:00 11/08/18 08:00 Glucophage PO 500 mg BIDDIAB RAMAN Administration Morphine Sulfate 2 mg 11/04/18 04:10 11/05/18 13:49 Morphine IV 2 mg Q4H PRN Administration Pain, Moderate (4-6) Ondansetron HCl 4 mg 11/04/18 04:10 Zofran IV Q8H PRN Nausea And Vomiting Sodium Chloride 10 ml 11/04/18 10:00 11/08/18 09:56 Sodium Chloride Flush Syringe 10 Ml IV 10 ml BID RAMAN Administration Sodium Chloride 10 ml 11/04/18 04:10 Sodium Chloride Flush Syringe 10 Ml IV PRN PRN LINE FLUSH Nutrition/Malnutrition Assess - Dietary Evaluation Nutrition/Malnutrition Findings: Nutrition Notes Start: 11/04/18 13:58 Freq: Status: Active Protocol: Document 11/06/18 15:21 RM (Rec: 11/06/18 15:29 RM [id number]) Nutrition Notes Initial or Follow up Reassessment Other Pertinent Diagnosis Cellulitis and abscess of R foot, new onset DM Current Diet Consistent CHO w/glucerna strawberry daily Labs/Tests Reviewed Pertinent Medications Reviewed Height 6 ft 2 in Weight 126.4 kg [place] Body Weight (kg) 86.36 BMI 35.7 Subjective/Other Information No family available to interpret at time of visit. Per nurse pt ate all of his breakfast. Noted lunch at bedside w/100% eaten and Glucerna with 1/3 drunk. Percent of energy/protein needs met: 90%/91% Burn Absent Trauma Absent #1 Nutrition Diagnosis Inadequate oral intake As Evidenced by Signs and Symptoms pt meeting 90% of calorie and protein needs Diagnosis Progress(for reassessment Resolved documentation) Is patient on ventilator? No Is Patient Ambulatory and/or Out of Bed Yes REE-([facility]-ambulatory/OOB) [ 2903.875 NUTR.MSJOOB] Kcal/Kg value to use for calculation 19 Approximate Energy Requirements Using 2402 kcal/Kg Calculation Used for Recommendations Kcal/kg Additional Notes Protein Needs: 103-129g (1.2-1 .5g/kg 86kg IBW) Fluid Needs: 1 ml/kcal Nutrition Intervention Change Diet Order: Continue current Add Supplement/Snack (indicate name/kcal Glucerna [place] 1 daily /protein ) Provides kCal: 220 Provides Protein (gm) 10 Goal #1 Continue to meet at least 75% of calorie and protein needs via PO and ONS intakes Goal #2 Utilize carbohydrate counting Follow-Up By: 11/13/18 Additional Comments Follow for PO and ONS intakes
--- NOTE | 2018-11-08 15:40 | Consultation ---
History of Present Illness Consult date: 11/08/18 Chief complaint: right foot wound - History of present illness History of present illness: 43 yo M presented to ER with right foot swelling, pain after stepping on a nail. He was found to high blood sugars and HbAIC of 10 and diagnosed with new onset diabetes. Orthopedic surgery was consulted and the patient underwent incision and drainage of the right foot abscesses. MRI performed shows osteomyelitis and abscesses of dorsal and plantar aspects of the foot. The patient denies pain, f/c. Surgery is asked to evaluate the patient due to findings of abscess on MRI. Past History Past Medical History: diabetes Past Surgical History: Other (incision and drainage of right foot abscess) Medications and Allergies Allergies Allergy/AdvReac Type Severity Reaction Status Date / Time No Known Allergies Allergy Unverified 11/03/18 17:41 Home Medications Medication Instructions Recorded Confirmed Last Taken Type No Known Home Medications [No 11/04/18 11/04/18 Unknown History Reported Home Medications] Active Meds: Active Medications Acetaminophen (Tylenol) 650 mg PO Q4H PRN PRN Reason: Pain MILD(1-3)/Fever >100.5/QUINONES Amlodipine Besylate (Norvasc) 10 mg PO QDAY [facility] Last Admin: 11/08/18 09:55 Dose: 10 mg Documented by: Dextrose (D50w (25gm) Syringe) 50 ml IV PRN PRN PRN Reason: Hypoglycemia Enoxaparin Sodium (Lovenox) 40 mg SUB-Q QDAY [facility] Last Admin: 11/08/18 09:54 Dose: 40 mg Documented by: Sodium Chloride (Nacl 0.9% 1000 Ml) 1,000 mls @ 125 mls/hr IV DIRECT [facility] Last Admin: 11/08/18 02:54 Dose: 125 mls/hr Documented by: Vancomycin HCl 2,000 mg/ (Sodium Chloride) 540 mls @ 250 mls/hr IV Q8HR [facility] Last Admin: 11/08/18 13:48 Dose: 250 mls/hr Documented by: Cefepime HCl (Maxipime/Ns 2 Gm/100 Ml) 2 gm in 100 mls @ 200 mls/hr IV Q8HR [facility]; Protocol Last Admin: 11/08/18 13:48 Dose: 200 mls/hr Documented by: Metronidazole (Flagyl 500 Mg/100 Ml) 500 mg in 100 mls @ 100 mls/hr IV Q8HR [facility]; Protocol Last Admin: 11/08/18 13:48 Dose: 100 mls/hr Documented by: Insulin Human Isoph/Insulin Regular (Humulin 70/30) 20 unit SUB-Q BIDDIAB RAMAN Insulin Human Regular (Humulin R) 0 units SUB-Q ACHS [facility]; Protocol Last Admin: 11/08/18 11:30 Dose: 4 units Documented by: Metformin HCl (Glucophage) 500 mg PO BIDDIAB [facility] Last Admin: 11/08/18 08:00 Dose: 500 mg Documented by: Morphine Sulfate (Morphine) 2 mg IV Q4H PRN PRN Reason: Pain, Moderate (4-6) Last Admin: 11/05/18 13:49 Dose: 2 mg Documented by: Ondansetron HCl (Zofran) 4 mg IV Q8H PRN PRN Reason: Nausea And Vomiting Sodium Chloride (Sodium Chloride Flush Syringe 10 Ml) 10 ml IV BID [facility] Last Admin: 11/08/18 09:56 Dose: 10 ml Documented by: Sodium Chloride (Sodium Chloride Flush Syringe 10 Ml) 10 ml IV PRN PRN PRN Reason: LINE FLUSH Review of Systems All systems: negative (10 pt ROS performed and negative except for that listed in HPI) Exam Vital Signs Temp Pulse Resp BP Pulse Ox 97.3 F L 117 H 18 167/99 100 11/03/18 19:07 11/03/18 19:07 11/03/18 19:07 11/03/18 19:07 11/03/18 19:07 Narrative exam: Gen: AAOx3. NAD CV: s1, S2+ resp: even and unlabored Ext; R foot dressing removed. One piece of iodoform removed from dorsal foot wound and one piece from plantar foot wound. There was some seropurulent drainage on the packing. The plantar foot wound probed to about 3 cm towards the bone. There is no fluctuance, induration, or drainage from the wound. The dorsal foot wound had thick slough at portions of the wound bed which was easily wiped away with a gauze sponge upon cleansing the wound. There is some necrotic skin at the wound edges. The wound bed is clean, red without drainage. No odor. There is bruising of periwound skin with minimal edema. The cavity measures approxima tely 3.5 cm x 3 cm and is 2.5 cm deep. The wound was packed with 1 piece of calcium alginate. Both wounds covered with 4x4 gauze, abd pad, and wrapped with kerlix. Results - Labs 11/06/18 07:12 11/06/18 07:12 Abnormal lab results 11/07/18 11/07/18 11/08/18 Range/Units 17:23 21:20 08:04 POC Glucose 257 H 244 H 203 H (70-105) 11/08/18 Range/Units 12:10 POC Glucose 225 H (70-105) - Imaging Additional studies: MRI RLE Assessment and Plan 43 yo M with diabetic right foot abscess s/p incision and drainage by Orthopedic surgery Plan: 1. There is no evidence of abscess on physical exam. The abscess dimensions and location on MRI are similar to the dimensions of the open wounds. The open wounds were likely packed with iodoform when MRI was done and may have been perceived as abscesses on imaging. 2. Agree with Dr. Arredondo, no urgent need for further debridement. Continue local wound care. 3. IV abx per ID 4. strict glucose control 5. right foot to be offloaded 6. optimize nutrition Upon discharge, will need weekly follow up in wound care center. Will discuss with case management on Saturday in order to obtain helping hands application for patient. Will s/o. Thank you, please call with questions.
[2018-11-09] MEDS: VANCOMYCIN 2,000 MG in NACL 0.9% 500 ML 500 ML IV SCH ×3 (00:08→13:14)
[2018-11-09] MEDS: SODIUM CHLORIDE FLUSH SYRINGE 10 ML IV SCH ×3 (00:09→22:00)
[2018-11-09] MEDS: HumuLIN R SUB-Q SCH ×5 (00:21→22:00)
[2018-11-09] MEDS: MAXIPIME/NS 2 GM/100 ML 2 GM/100 ML BAG IV SCH ×2 (06:55→13:15)
[2018-11-09] MEDS: FLAGYL 500 MG/100 ML 500 MG/100 ML BAG IV SCH ×2 (06:55→13:15)
[2018-11-09] MEDS: GLUCOPHAGE PO SCH ×2 (08:00→17:58)
[2018-11-09] MEDS: NORVASC PO SCH (09:34)
[2018-11-09] MEDS: LOVENOX SUB-Q SCH (09:35)
[2018-11-09] MEDS: NACL 0.9% 1000 ML 1,000 ML IV SCH (13:13)
--- NOTE | 2018-11-09 13:15 | Progress Note ---
Assessment and Plan - Patient Problems (1) Cellulitis of left foot Current Visit: Yes Status: Acute Plan to address problem: A she was cellulitis osteomyelitis left foot second toe proximal phalanx. Improving. Continue vancomycin and Zosyn. For now. Patient has sensitivities that had arrived. Sensitive to Bactrim clindamycin and vancomycin. We'll follow indications as per ID and projected discharge plan. (2) Open wound of foot Current Visit: Yes Status: Acute Qualifiers: Encounter type: initial encounter Laterality: left Qualified Code(s): S91.302A - Unspecified open wound, left foot, initial encounter (3) Obese Current Visit: Yes Status: Acute Plan to address problem: Diet weight loss and exercise when stabilized. (4) Diabetes 1.5, managed as type 1 Current Visit: Yes Status: Acute Plan to address problem: Diabetic education completed. Spoke about insulin and conversion to oral hypogl ycemic medications and the importance of diabetic control with infections. History Interval history: At present patient feels much better. Family at bedside all questions and concerns answered to the satisfaction. Hospitalist Physical - Constitutional Vitals: Temp Pulse Resp BP Pulse Ox 98.0 F 84 24 126/68 98 11/09/18 04:59 11/09/18 04:59 11/09/18 04:59 11/09/18 04:59 11/09/18 04:59 General appearance: Present: no acute distress, well-nourished - EENT Eyes: Present: PERRL, EOM intact ENT: hearing intact, clear oral mucosa, dentition normal - Neck Neck: Present: supple, normal ROM - Respiratory Respiratory: bilateral: CTA - Cardiovascular Rhythm: regular - Extremities Extremities: no ischemia, pulses intact, pulses symmetrical, No edema, normal temperature, normal color Extremity abnormal: other (issue wounds bandaged. Observe from the outside no redness. Erythema has resolved still edematous.) Peripheral Pulses: within normal limits - Abdominal General gastrointestinal: soft, non-tender, non-distended, normal bowel sounds - Integumentary Integumentary: Present: clear - Psychiatric Psychiatric: appropriate mood/affect, intact judgment & insight, memory intact - Neurologic Neurologic: CNII-XII intact, no focal deficits, moves all extremities Results - Labs CBC & Chem 7: 11/06/18 07:12 11/06/18 07:12 Labs: Laboratory Last Values WBC 8.3 K/mm3 (4.5-11.0) 11/06/18 07:12 RBC 4.95 M/mm3 (3.65-5.03) 11/06/18 07:12 Hgb 12.8 gm/dl (11.8-15.2) 11/06/18 07:12 Hct 39.3 % (35.5-45.6) 11/06/18 07:12 MCV 79 fl (84-94) L 11/06/18 07:12 MCH 26 pg (28-32) L 11/06/18 07:12 MCHC 33 % (32-34) 11/06/18 07:12 RDW 12.8 % (13.2-15.2) L 11/06/18 07:12 Plt Count 291 K/mm3 (140-440) 11/06/18 07:12 Lymph % (Auto) 24.7 % (13.4-35.0) 11/06/18 07:12 [place] % (Auto) 9.1 % (0.0-7.3) H 11/06/18 07:12 Eos % (Auto) 5.9 % (0.0-4.3) H 11/06/18 07:12 Baso % (Auto) 0.5 % (0.0-1.8) 11/06/18 07:12 Lymph # 2.0 K/mm3 (1.2-5.4) 11/06/18 07:12 [place] # 0.8 K/mm3 (0.0-0.8) 11/06/18 07:12 Eos # 0.5 K/mm3 (0.0-0.4) H 11/06/18 07:12 Baso # 0.0 K/mm3 (0.0-0.1) 11/06/18 07:12 Seg Neutrophils % 59.8 % (40.0-70.0) 11/06/18 07:12 Seg Neutrophils # 4.9 K/mm3 (1.8-7.7) 11/06/18 07:12 ESR 48 mm/Hr (0-20) 11/06/18 19:30 Sodium 139 mmol/L (137-145) 11/06/18 07:12 Potassium 3.8 mmol/L (3.6-5.0) 11/06/18 07:12 Chloride 104.3 mmol/L (98-107) 11/06/18 07:12 Carbon Dioxide 27 mmol/L (22-30) 11/06/18 07:12 Anion Gap 12 mmol/L 11/06/18 07:12 BUN 7 mg/dL (9-20) L 11/06/18 07:12 Creatinine 0.5 mg/dL (0.8-1.5) L 11/06/18 07:12 Estimated GFR > 60 ml/min 11/06/18 07:12 BUN/Creatinine Ratio 14 % 11/06/18 07:12 Glucose 206 mg/dL (75-100) H 11/06/18 07:12 POC Glucose 198 (70-105) H 11/09/18 11:34 Hemoglobin A1c 10.2 % (4-6) H 11/06/18 07:12 Lactic Acid 1.30 mmol/L (0.7-2.0) 11/04/18 01:02 Calcium 8.2 mg/dL (8.4-10.2) L 11/06/18 07:12 C-Reactive Protein 3.20 mg/dL (0.00-1.30) H 11/06/18 19:30 Vancomycin Trough 8.5 ug/mL (5.0-20.0) 11/05/18 09:54 Active Medications - Current Medications Current Medications: Generic Name Dose Route Start Last Admin Trade Name Freq PRN Reason Stop Dose Admin Acetaminophen 650 mg 11/04/18 04:10 Tylenol PO Q4H PRN Pain MILD(1-3)/Fever >100.5/QUINONES Amlodipine Besylate 10 mg 11/06/18 10:00 11/09/18 09:34 Norvasc PO 10 mg QDAY RAMAN Administration Dextrose 50 ml 11/04/18 00:01 D50w (25gm) Syringe IV PRN PRN Hypoglycemia Enoxaparin Sodium 40 mg 11/04/18 10:00 11/09/18 09:35 Lovenox SUB-Q 40 mg QDAY RAMAN Administration Sodium Chloride 1,000 mls @ 125 mls/hr 11/04/18 05:00 11/08/18 21:23 Nacl 0.9% 1000 Ml IV 125 mls/hr DIRECT RAMAN Administration Vancomycin HCl 2,000 mg/ 540 mls @ 250 mls/hr 11/05/18 22:00 11/09/18 06:56 Sodium Chloride IV 250 mls/hr Q8HR RAMAN Administration Cefepime HCl 2 gm in 100 mls @ 200 mls/hr 11/06/18 18:00 11/09/18 06:55 Maxipime/Ns 2 Gm/100 Ml IV 200 mls/hr Q8HR RAMAN Administration Protocol Metronidazole 500 mg in 100 mls @ 100 mls/hr 11/06/18 18:00 11/09/18 06:55 Flagyl 500 Mg/100 Ml IV 100 mls/hr Q8HR RAMAN Administration Protocol Insulin Human Isoph/Insulin Regular 20 unit 11/08/18 17:00 11/09/18 07:30 Humulin 70/30 SUB-Q 20 unit BIDDIAB RAMAN Administration Insulin Human Regular 0 units 11/04/18 00:30 11/09/18 07:30 Humulin R SUB-Q Not Given ACHS RAMAN Protocol Metformin HCl 500 mg 11/07/18 08:00 11/09/18 08:00 Glucophage PO 500 mg BIDDIAB RAMAN Administration Morphine Sulfate 2 mg 11/04/18 04:10 11/05/18 13:49 Morphine IV 2 mg Q4H PRN Administration Pain, Moderate (4-6) Ondansetron HCl 4 mg 11/04/18 04:10 Zofran IV Q8H PRN Nausea And Vomiting Sodium Chloride 10 ml 11/04/18 10:00 11/09/18 09:36 Sodium Chloride Flush Syringe 10 Ml IV 10 ml BID RAMAN Administration Sodium Chloride 10 ml 11/04/18 04:10 Sodium Chloride Flush Syringe 10 Ml IV PRN PRN LINE FLUSH Nutrition/Malnutrition Assess - Dietary Evaluation Nutrition/Malnutrition Findings: Nutrition Notes Start: 11/04/18 13:58 Freq: Status: Active Protocol: Document 11/06/18 15:21 RM (Rec: 11/06/18 15:29 RM [id number]) Nutrition Notes Initial or Follow up Reassessment Other Pertinent Diagnosis Cellulitis and abscess of R foot, new onset DM Current Diet Consistent CHO w/glucerna strawberry daily Labs/Tests Reviewed Pertinent Medications Reviewed Height 6 ft 2 in Weight 126.4 kg [place] Body Weight (kg) 86.36 BMI 35.7 Subjective/Other Information No family available to interpret at time of visit. Per nurse pt ate all of his breakfast. Noted lunch at bedside w/100% eaten and Glucerna with 1/3 drunk. Percent of energy/protein needs met: 90%/91% Burn Absent Trauma Absent #1 Nutrition Diagnosis Inadequate oral intake As Evidenced by Signs and Symptoms pt meeting 90% of calorie and protein needs Diagnosis Progress(for reassessment Resolved documentation) Is patient on ventilator? No Is Patient Ambulatory and/or Out of Bed Yes REE-([place]-ambulatory/OOB) [ 2903.875 NUTR.MSJOOB] Kcal/Kg value to use for calculation 19 Approximate Energy Requirements Using 2402 kcal/Kg Calculation Used for Recommendations Kcal/kg Additional Notes Protein Needs: 103-129g (1.2-1 .5g/kg 86kg IBW) Fluid Needs: 1 ml/kcal Nutrition Intervention Change Diet Order: Continue current Add Supplement/Snack (indicate name/kcal Glucerna [place] 1 daily /protein ) Provides kCal: 220 Provides Protein (gm) 10 Goal #1 Continue to meet at least 75% of calorie and protein needs via PO and ONS intakes Goal #2 Utilize carbohydrate counting Follow-Up By: 11/13/18 Additional Comments Follow for PO and ONS intakes
[2018-11-09] MEDS ORDERED: NACL 0.9% IV SCH (16:00)
[2018-11-09] MEDS ORDERED: DAPTOMYCIN IV SCH (16:00)
[2018-11-10] MEDS: HumuLIN R SUB-Q SCH ×4 (08:24→23:09)
[2018-11-10] MEDS: LOVENOX SUB-Q SCH (09:39)
[2018-11-10] MEDS: NORVASC PO SCH (09:39)
[2018-11-10] MEDS: SODIUM CHLORIDE FLUSH SYRINGE 10 ML IV SCH ×2 (09:39→23:10)
[2018-11-10] MEDS: GLUCOPHAGE PO SCH ×2 (09:39→17:14)
[2018-11-10] MEDS: NACL 0.9% 1000 ML 1,000 ML IV SCH ×2 (09:44→17:14)
[2018-11-10 10:18] LABS: BUN/Creatinine Ratio 13; Blood Urea Nitrogen 5 mg/dL (9-20); Hemolysis Index 2
--- NOTE | 2018-11-10 11:20 | Progress Note ---
Assessment and Plan Cultures: 11/04/18 Right Foot:Wound : Beta Hem Strep Group B, MRSA 11/03/18 Blood: no growth in 48 hours A/P: 43-year-old man with no past medical history that presents to the ED on 11/03/18 with complaints of left foot swelling with purulent drainage after stepping onto a rust nail 2 weeks ago. He received a tetanus shot in the ED. Now admitted with: 1. Sepsis on admission: Resolved. . Etiology right foot wound. No fever. Wound cultures grew beta hemolytic strep group B and Staph Aureus. Blood cultures show no growth to date. Currently being treated with Daptomycin. 2. Right Diabetic Foot Wound/ large Abscess/2nd toe osteomyelitis: Per wound care wound measurement 4.0 x 4.5 x 0.1. Significant erythema, swelling and soft necrotic tissue. Right foot second metatarsal. wound measurement 2.0 X 2.5 with significant erythema and swelling to the toe. Right plantar wound measurement 1.0 x 1.0 x 4.0 with serous sanguineos and purulent drainage with significant swelling. Right foot xray shows soft tissue swelling without plain film evidence of acute bony abnormality. Wound cultures grew beta hemolytic strep group B and Staph aureus. s/p I & D of right foot. on 11/05/18.. Follow up surgical cultures and wound cultures for ID and JOANNA's. CRP 3.2. MRI showed Abscesses 3.2x1.6x2.6 cm on the dorsum and plantar aspect of the forefoot at the second toe which may commu nicate with each other via the deep soft tissues between the first and second toes. Osteomyelitis involving the proximal phalanx of the second toe. No need for further debridement per Dr. Arredondo and Dr. Peralta. Continue local wound care. Arterial Doppler's reveal Monophasic waveform with spectral broadening of the right dorsalis pedis artery concerning for moderate to severe arterial insufficiency 3. Newly Diagnosed Type 2 Diabetic: on admission Hemoglobin A1C 10.2, Recommend tight glycemic control. 4. Morbid Obesity: Plan: Discontinue Vancomycin Discontinue Cefepime and Flagyl Start Daptomycin 750mg IV every 24 hours Contact isolation for MRSA Anticipate discharge on Daptomycin 750 mg IV every 24 hours for total 6 weeks ending 12-15-18 Order placed with case management and sent to [facility] for shyann approval with [facility] ID Clinic f/u in 3 weeks [facility] M: [phone] O:[phone] Subjective Date of service: 11/10/18 Principal diagnosis: DM foot infection Interval history: patient seen and examined. Denies generalized pain, weakness or SOB. no fevers. OPAT discussed. Verbalized understanding. Objective - Exam Narrative Exam: Constitutional: Alert, cooperative. No acute distress Head, Ears, Nose: Normocephalic, atraumatic. External ears, nose normal Eyes: Conjunctivae/corneas clear. No icterus. No ptosis. Neck: Supple, no meningeal signs Oral: dentition good, no thrush Cardiovascular: S1, S2 normal. Respiratory: Good air entry, clear to auscultation bilaterally GI: Soft, non-tender; bowel sounds normal. No peritoneal signs Musculoskeletal:Per wound care wound measurement 4.0 x 4.5 x 0.1. Significant erythema, swelling and soft necrotic tissue. Right foot second metatarsal. wound measurement 2.0 X 2.5 with significant erythema and swelling to the toe. Right plantar wound measurement 1.0 x 1.0 x 4.0 with serous sanguineos and purulent drainage with significant swelling. + dressings Skin: same as above Hem/Lymphatic: No palpable cervical or supraclavicular nodes. No lymphangitis Psych: Mood ok. Affect normal Neurological: Awake, alert, oriented. - Constitutional Vitals: Vital Signs Temp Pulse Resp BP Pulse Ox 98.6 F 75 20 137/80 98 11/10/18 04:24 11/10/18 04:24 11/10/18 04:24 11/10/18 04:24 11/10/18 04:24 Temperature -Last 24 Hours Temperature 98.6 F Temperature 98.4 F Temperature 98.2 F Temperature 97.8 F - Labs CBC & Chem 7: 11/06/18 07:12 11/10/18 09:14 Labs: Abnormal lab results 11/09/18 11/09/18 11/09/18 Range/Units 11:34 16:15 21:16 BUN (9-20) mg/dL Creatinine (0.8-1.5) mg/dL Glucose (75-100) mg/dL POC Glucose 198 H 126 H 145 H (70-105) Total Creatine Kinase (55-170) units/L 11/10/18 11/10/18 Range/Units 09:14 09:14 BUN 5 L (9-20) mg/dL Creatinine 0.4 L (0.8-1.5) mg/dL Glucose 163 H (75-100) mg/dL POC Glucose (70-105) Total Creatine Kinase 39 L (55-170) units/L
--- NOTE | 2018-11-10 13:24 | XRay Report ---
AP CHEST: HISTORY: Right arm PICC placement. AP view of the chest demonstrates a normal mediastinal and cardiac contour with clear lungs and normal bony and soft tissue structures. A right arm PICC has been inserted which is last visualized at the cavoatrial junction. IMPRESSION: Unremarkable AP chest. Right arm PICC terminates at the cavoatrial junction.
--- NOTE | 2018-11-10 13:44 | Progress Note ---
Assessment and Plan Cellulitis and abscess of left foot with osteomylitis - cont IV fluid, cont daptomycin iv - Orthopedic was consulted in the emergency room - s/p Incision and drainage of right foot 11/05/18 at bedside - cont IV morphine for pain, follow surgical Cx - Anticipate discharge on Daptomycin 750 mg IV every 24 hours for total 6 weeks ending - Order placed with case management and sent to [facility] for [facility] approval with [facility] - ID Clinic f/u in 2 weeks New-onset diabetes - cont to Check fingersticks, insulin sliding scale and add long acting - HbA1c 10.2 HTN, cont Norvasc Obesity, dietary recommendation when stable DVt Px, lovenox Brief History: 43-year-old man, obese with no medical problems comes emergency room because 2 weeks ago he stepped on a nail. His left foot became red, swollen and started draining bloody discharge, painful. Left foot xry: 1. Soft tissue swelling without plain film evidence of acute bony abnormality. If further imaging is required, MRI may be helpful. MRI right foot: 1. Abscesses on the dorsum and plantar aspect of the forefoot at the second toe which may communicate with each other via the deep soft tissues between the first and second toes. 2. Osteomyelitis involving the proximal phalanx of the second toe. Subjective Date of service: 11/10/18 Principal diagnosis: DM foot infection Interval history: Patient was seen and examined s/p Incision and drainage of right foot 11/05/18 tolerating diet, waiting on iv abx approval - patient is unfunded Objective - Exam Narrative Exam: General appearance: Present: no acute distress, well-nourished - EENT Eyes: PERRL, EOM intact ENT: hearing intact, clear oral mucosa Ears: bilateral: normal - Neck Neck: supple, normal ROM - Respiratory Respiratory effort: normal Respiratory: bilateral: CTA - Cardiovascular Rhythm: regular Heart Sounds: Present: S1 & S2. Absent: gallop, rub Extremities: pulses intact, No edema, normal color, Full ROM - Gastrointestinal General gastrointestinal: Present: soft, non-tender, non-distended, normal bowel sounds - Integumentary Integumentary: clear, warm, dry - Musculoskeletal Musculoskeletal: other (right foot with wound dressing) - Neurologic Neurologic: moves all extremities - Psychiatric Psychiatric: memory intact, appropriate mood/affect, intact judgment & insight - Constitutional Vitals: Vital Signs - 12hr 11/10/18 04:24 Temperature 98.6 F Pulse Rate 75 Respiratory 20 Rate Blood Pressure 137/80 O2 Sat by Pulse 98 Oximetry - Labs CBC & Chem 7: 11/06/18 07:12 11/10/18 09:14 Labs: Abnormal lab results 11/09/18 11/09/18 11/10/18 Range/Units 16:15 21:16 09:14 BUN (9-20) mg/dL Creatinine (0.8-1.5) mg/dL Glucose (75-100) mg/dL POC Glucose 126 H 145 H (70-105) Total Creatine Kinase 39 L (55-170) units/L 11/10/18 11/10/18 Range/Units 09:14 11:39 BUN 5 L (9-20) mg/dL Creatinine 0.4 L (0.8-1.5) mg/dL Glucose 163 H (75-100) mg/dL POC Glucose 159 H (70-105) Total Creatine Kinase (55-170) units/L
[2018-11-10] MEDS: DAPTOmycin 750 MG in NACL 0.9% 100 ML IV SCH (17:22)
[2018-11-11] MEDS: HumuLIN R SUB-Q SCH ×4 (08:08→22:23)
[2018-11-11] MEDS: NORVASC PO SCH (09:12)
[2018-11-11] MEDS: LOVENOX SUB-Q SCH (09:12)
[2018-11-11] MEDS: GLUCOPHAGE PO SCH ×2 (09:12→18:03)
[2018-11-11] MEDS: SODIUM CHLORIDE FLUSH SYRINGE 10 ML IV SCH ×2 (09:17→22:24)
[2018-11-11] MEDS: DAPTOmycin 750 MG in NACL 0.9% 100 ML IV SCH (10:01)
--- NOTE | 2018-11-11 10:24 | Progress Note ---
Assessment and Plan Cultures: 11/04/18 Right Foot:Wound : Beta Hem Strep Group B, MRSA 11/03/18 Blood: no growth in 48 hours A/P: 43-year-old man with no past medical history that presents to the ED on 11/03/18 with complaints of left foot swelling with purulent drainage after stepping onto a rust nail 2 weeks ago. He received a tetanus shot in the ED. Now admitted with: 1. Sepsis on admission: Resolved. . Etiology right foot wound. No fever. Wound cultures grew beta hemolytic strep group B and Staph Aureus. Blood cultures show no growth to date. Currently being treated with Daptomycin. 2. Right Diabetic Foot Wound/ large Abscess/2nd toe osteomyelitis: Per wound care wound measurement 4.0 x 4.5 x 0.1. Significant erythema, swelling and soft necrotic tissue. Right foot second metatarsal. wound measurement 2.0 X 2.5 with significant erythema and swelling to the toe. Right plantar wound measurement 1.0 x 1.0 x 4.0 with serous sanguineos and purulent drainage with significant swelling. Right foot xray shows soft tissue swelling without plain film evidence of acute bony abnormality. Wound cultures grew beta hemolytic strep group B and Staph aureus. s/p I & D of right foot. on 11/05/18.. Follow up surgical cultures and wound cultures for ID and JOANNA's. CRP 3.2. MRI showed Abscesses 3.2x1.6x2.6 cm on the dorsum and plantar aspect of the forefoot at the second toe which may commu nicate with each other via the deep soft tissues between the first and second toes. Osteomyelitis involving the proximal phalanx of the second toe. No need for further debridement per Dr. Arredondo and Dr. Peralta. Continue local wound care. Arterial Doppler's reveal Monophasic waveform with spectral broadening of the right dorsalis pedis artery concerning for moderate to severe arterial insufficiency 3. Newly Diagnosed Type 2 Diabetic: on admission Hemoglobin A1C 10.2, Recommend tight glycemic control. 4. Morbid Obesity: Plan: Continue Daptomycin 750mg IV every 24 hours Contact isolation for MRSA Anticipate discharge on Daptomycin 750 mg IV every 24 hours for total 6 weeks ending 12-15-18 Order placed with case management and sent to [facility] for shyann approval with [facility] ID Clinic f/u in 3 weeks recommend close surgical follow-up -risk of amputation in the future Arrange outpatient wound care with case management CBC ordered for tomorrow [facility] M: [phone] O:[phone] Subjective Date of service: 11/11/18 Principal diagnosis: DM foot infection Interval history: patient seen and examined. Denies generalized pain, weakness or SOB. no fevers. OPAT discussed. Verbalized understanding. Objective - Exam Narrative Exam: Constitutional: Alert, cooperative. No acute distress Head, Ears, Nose: Normocephalic, atraumatic. External ears, nose normal Eyes: Conjunctivae/corneas clear. No icterus. No ptosis. Neck: Supple, no meningeal signs Oral: dentition good, no thrush Cardiovascular: S1, S2 normal. Respiratory: Good air entry, clear to auscultation bilaterally GI: Soft, non-tender; bowel sounds normal. No peritoneal signs Musculoskeletal:Per wound care wound measurement 4.0 x 4.5 x 0.1. Significant erythema, swelling and soft necrotic tissue. Right foot second metatarsal. wound measurement 2.0 X 2.5 . + dressing/no drainage. Skin: same as above Hem/Lymphatic: No palpable cervical or supraclavicular nodes. No lymphangitis Psych: Mood ok. Affect normal Neurological: Awake, alert, oriented. - Constitutional Vitals: Vital Signs Temp Pulse Resp BP Pulse Ox 98.2 F 71 16 125/65 98 11/11/18 00:13 11/11/18 09:12 11/11/18 00:13 11/11/18 09:12 11/11/18 00:13 Temperature -Last 24 Hours Temperature 98.2 F Temperature 98.5 F Temperature 98.6 F - Labs CBC & Chem 7: 11/06/18 07:12 11/10/18 09:14 Labs: Abnormal lab results 11/10/18 11/10/18 11/10/18 Range/Units 09:14 11:39 17:01 POC Glucose 159 H 156 H (70-105) Total Creatine Kinase 39 L (55-170) units/L
--- NOTE | 2018-11-11 15:45 | Progress Note ---
Assessment and Plan Cellulitis and abscess of left foot with osteomylitis - cont IV fluid, cont daptomycin iv - Orthopedic was consulted in the emergency room - s/p Incision and drainage of right foot 11/05/18 at bedside - cont IV morphine for pain, follow surgical Cx - Anticipate discharge on Daptomycin 750 mg IV every 24 hours for total 6 weeks ending - Order placed with case management and sent to [facility] for [facility] approval with [facility] - ID Clinic f/u in 3 weeks, need outpatient wound care f/u New-onset diabetes - cont to Check fingersticks, insulin sliding scale and add long acting - HbA1c 10.2 HTN, cont Norvasc Obesity, dietary recommendation when stable DVt Px, lovenox Brief History: 43-year-old man, obese with no medical problems comes emergency room because 2 weeks ago he stepped on a nail. His left foot became red, swollen and started draining bloody discharge, painful. Left foot xry: 1. Soft tissue swelling without plain film evidence of acute bony abnormality. If further imaging is required, MRI may be helpful. MRI right foot: 1. Abscesses on the dorsum and plantar aspect of the forefoot at the second toe which may communicate with each other via the deep soft tissues between the first and second toes. 2. Osteomyelitis involving the proximal phalanx of the second toe. Subjective Date of service: 11/11/18 Principal diagnosis: DM foot infection Interval history: Patient was seen and examined s/p Incision and drainage of right foot 11/05/18 tolerating diet, waiting on iv abx approval - patient is unfunded Objective - Exam Narrative Exam: General appearance: Present: no acute distress, well-nourished - EENT Eyes: PERRL, EOM intact ENT: hearing intact, clear oral mucosa Ears: bilateral: normal - Neck Neck: supple, normal ROM - Respiratory Respiratory effort: normal Respiratory: bilateral: CTA - Cardiovascular Rhythm: regular Heart Sounds: Present: S1 & S2. Absent: gallop, rub Extremities: pulses intact, No edema, normal color, Full ROM - Gastrointestinal General gastrointestinal: Present: soft, non-tender, non-distended, normal bowel sounds - Integumentary Integumentary: clear, warm, dry - Musculoskeletal Musculoskeletal: other (right foot with wound dressing) - Neurologic Neurologic: moves all extremities - Psychiatric Psychiatric: memory intact, appropriate mood/affect, intact judgment & insight - Constitutional Vitals: Vital Signs - 12hr 11/11/18 11/11/18 11/11/18 06:19 09:01 09:12 Temperature 98.0 F Pulse Rate 75 71 Respiratory 16 Rate Blood Pressure 107/42 125/65 125/65 O2 Sat by Pulse 98 Oximetry 11/11/18 12:38 Temperature 99.5 F Pulse Rate 83 Respiratory 16 Rate Blood Pressure 121/73 O2 Sat by Pulse 97 Oximetry - Labs CBC & Chem 7: 11/12/18 00:49 11/10/18 09:14 Labs: Abnormal lab results 11/10/18 Range/Units 17:01 POC Glucose 156 H (70-105)
[2018-11-11] MEDS: NACL 0.9% 1000 ML 1,000 ML IV SCH (18:07)
[2018-11-12 01:19] LABS: Hematocrit 41.6 % (35.5-45.6); Hemoglobin 13.3 gm/dl (11.8-15.2); Mean Corpuscular HGB Conc 32 % (32-34); Mean Corpuscular Volume 81 fl (84-94); Platelet Count 281 K/mm3 (140-440); Red Cell Distribution Width 13.6 % (13.2-15.2)
[2018-11-12] MEDS: HumuLIN R SUB-Q SCH ×4 (07:30→22:18)
--- NOTE | 2018-11-12 08:31 | Progress Note ---
Assessment and Plan Cultures: 11/04/18 Right Foot:Wound : Beta Hem Strep Group B, MRSA 11/03/18 Blood: no growth A/P: 43-year-old man with no past medical history that presents to the ED on 11/03/18 with complaints of left foot swelling with purulent drainage after stepping onto a rust nail 2 weeks ago. He received a tetanus shot in the ED. Now admitted with: 1. Sepsis on admission: Improved. Low grade fever noted. Etiology right foot wound. No fever. Wound cultures grew beta hemolytic strep group B and Staph Aureus. Blood cultures show no growth. Currently being treated with Daptomycin. 2. Right Diabetic Foot Wound/ large Abscess/2nd toe osteomyelitis: Per wound care wound measurement 4.0 x 4.5 x 0.1. Significant erythema, swelling and soft necrotic tissue. Right foot second metatarsal. wound measurement 2.0 X 2.5 with significant erythema and swelling to the toe. Right plantar wound measurement 1.0 x 1.0 x 4.0 with serous sanguineos and purulent drainage with significant swelling. Right foot xray shows soft tissue swelling without plain film evidence of acute bony abnormality. Wound cultures grew beta hemolytic strep group B and Staph aureus. s/p I & D of right foot. on 11/05/18.. Follow up surgical cultures and wound cultures for ID and JOANNA's. CRP 3.2. MRI showed Abscesses 3.2x1.6x2.6 cm on the dorsum and plantar aspect of the forefoot at the second toe which may com municate with each other via the deep soft tissues between the first and second toes. Osteomyelitis involving the proximal phalanx of the second toe. No need for further debridement per Dr. Arredondo and Dr. Peralta. Continue local wound care. Arterial Doppler's reveal Monophasic waveform with spectral broadening of the right dorsalis pedis artery concerning for moderate to severe arterial insufficiency 3. Newly Diagnosed Type 2 Diabetic: on admission Hemoglobin A1C 10.2, Recommend tight glycemic control. 4. Morbid Obesity: Plan: Continue Daptomycin 750mg IV every 24 hours Contact isolation for MRSA Anticipate discharge on Daptomycin 750 mg IV every 24 hours for total 6 weeks ending 12-15-18 Antibiotics arranged with [facility] ID Clinic f/u in 3 weeks recommend close surgical follow-up -risk of amputation in the future Arrange outpatient wound care with case management [facility] M: [phone] O:[phone] Subjective Date of service: 11/12/18 Principal diagnosis: DM foot infection Interval history: patient seen and examined. Denies generalized pain, weakness or SOB. no fevers. OPAT discussed. Verbalized understanding. Objective - Exam Narrative Exam: Constitutional: Alert, cooperative. No acute distress Head, Ears, Nose: Normocephalic, atraumatic. External ears, nose normal Eyes: Conjunctivae/corneas clear. No icterus. No ptosis. Neck: Supple, no meningeal signs Oral: dentition good, no thrush Cardiovascular: S1, S2 normal. Respiratory: Good air entry, clear to auscultation bilaterally GI: Soft, non-tender; bowel sounds normal. No peritoneal signs Musculoskeletal:Per wound care wound measurement 4.0 x 4.5 x 0.1. Significant erythema, swelling and soft necrotic tissue. Right foot second metatarsal. wound measurement 2.0 X 2.5 . + dressing/no drainage. Skin: same as above Hem/Lymphatic: No palpable cervical or supraclavicular nodes. No lymphangitis Psych: Mood ok. Affect normal Neurological: Awake, alert, oriented. - Constitutional Vitals: Vital Signs Temp Pulse Resp BP Pulse Ox 97.7 F 65 18 119/70 99 11/12/18 06:30 11/12/18 06:30 11/12/18 06:30 11/12/18 06:30 11/12/18 06:30 Temperature -Last 24 Hours Temperature 97.7 F Temperature 97.9 F Temperature 100.0 F Temperature 99.5 F - Labs CBC & Chem 7: 11/12/18 00:49 11/10/18 09:14 Labs: Abnormal lab results 11/11/18 11/11/18 11/12/18 Range/Units 16:56 22:07 00:49 RBC 5.10 H (3.65-5.03) M/mm3 MCV 81 L (84-94) fl MCH 26 L (28-32) pg POC Glucose 146 H 139 H (70-105) 11/12/18 Range/Units 08:08 RBC (3.65-5.03) M/mm3 MCV (84-94) fl MCH (28-32) pg POC Glucose 126 H (70-105)
[2018-11-12] MEDS: GLUCOPHAGE PO SCH ×2 (09:06→17:40)
[2018-11-12] MEDS: NACL 0.9% 1000 ML 1,000 ML IV SCH ×2 (09:14→22:05)
[2018-11-12] MEDS: LOVENOX SUB-Q SCH (09:15)
[2018-11-12] MEDS: NORVASC PO SCH (10:00)
[2018-11-12] MEDS: DAPTOmycin 750 MG in NACL 0.9% 100 ML IV SCH (11:12)
[2018-11-12] MEDS: SODIUM CHLORIDE FLUSH SYRINGE 10 ML IV SCH ×2 (11:16→22:27)
--- NOTE | 2018-11-12 14:29 | Progress Note ---
Assessment and Plan Cellulitis and abscess of left foot with osteomylitis - cont IV fluid, cont daptomycin iv - Orthopedic was consulted in the emergency room - s/p Incision and drainage of right foot 11/05/18 at bedside - cont IV morphine for pain, follow surgical Cx - Anticipate discharge on Daptomycin 750 mg IV every 24 hours for total 6 weeks ending - Order placed with case management and sent to [facility] for [facility] approval with [facility] - ID Clinic f/u in 3 weeks, need outpatient wound care f/u New-onset diabetes - cont to Check fingersticks, insulin sliding scale and add long acting - HbA1c 10.2 HTN, cont Norvasc Obesity, dietary recommendation when stable DVt Px, lovenox Brief History: 43-year-old man, obese with no medical problems comes emergency room because 2 weeks ago he stepped on a nail. His left foot became red, swollen and started draining bloody discharge, painful. Left foot xry: 1. Soft tissue swelling without plain film evidence of acute bony abnormality. If further imaging is required, MRI may be helpful. MRI right foot: 1. Abscesses on the dorsum and plantar aspect of the forefoot at the second toe which may communicate with each other via the deep soft tissues between the first and second toes. 2. Osteomyelitis involving the proximal phalanx of the second toe. Subjective Date of service: 11/12/18 Principal diagnosis: DM foot infection Interval history: Patient was seen and examined s/p Incision and drainage of right foot 11/05/18 tolerating diet, waiting on iv abx approval - patient is unfunded Objective - Exam Narrative Exam: General appearance: Present: no acute distress, well-nourished - EENT Eyes: PERRL, EOM intact ENT: hearing intact, clear oral mucosa Ears: bilateral: normal - Neck Neck: supple, normal ROM - Respiratory Respiratory effort: normal Respiratory: bilateral: CTA - Cardiovascular Rhythm: regular Heart Sounds: Present: S1 & S2. Absent: gallop, rub Extremities: pulses intact, No edema, normal color, Full ROM - Gastrointestinal General gastrointestinal: Present: soft, non-tender, non-distended, normal bowel sounds - Integumentary Integumentary: clear, warm, dry - Musculoskeletal Musculoskeletal: other (right foot with wound dressing) - Neurologic Neurologic: moves all extremities - Psychiatric Psychiatric: memory intact, appropriate mood/affect, intact judgment & insight - Constitutional Vitals: Vital Signs - 12hr 11/12/18 11/12/18 11/12/18 06:30 10:00 11:33 Temperature 97.7 F 98.4 F Pulse Rate 65 73 Respiratory 18 18 Rate Blood Pressure 119/70 133/70 116/67 O2 Sat by Pulse 99 99 Oximetry - Labs CBC & Chem 7: 11/12/18 00:49 11/10/18 09:14 Labs: Abnormal lab results 11/11/18 11/11/18 11/12/18 Range/Units 16:56 22:07 00:49 RBC 5.10 H (3.65-5.03) M/mm3 MCV 81 L (84-94) fl MCH 26 L (28-32) pg POC Glucose 146 H 139 H (70-105) 11/12/18 11/12/18 Range/Units 08:08 11:37 RBC (3.65-5.03) M/mm3 MCV (84-94) fl MCH (28-32) pg POC Glucose 126 H 159 H (70-105)
[2018-11-13] MEDS: HumuLIN R SUB-Q SCH (07:30)
[2018-11-13] MEDS: GLUCOPHAGE PO SCH (08:00)
[2018-11-13] MEDS: NACL 0.9% 1000 ML 1,000 ML IV SCH (08:53)
[2018-11-13] MEDS: SODIUM CHLORIDE FLUSH SYRINGE 10 ML IV SCH (09:49)
[2018-11-13] MEDS: LOVENOX SUB-Q SCH (09:49)
[2018-11-13] MEDS: NORVASC PO SCH (09:50)
--- NOTE | 2018-11-13 10:04 | Progress Note ---
Assessment and Plan Cultures: 11/04/18 Right Foot:Wound : Beta Hem Strep Group B, MRSA 11/03/18 Blood: no growth A/P: 43-year-old man with no past medical history that presents to the ED on 11/03/18 with complaints of left foot swelling with purulent drainage after stepping onto a rust nail 2 weeks ago. He received a tetanus shot in the ED. Now admitted with: 1. Sepsis on admission: Improved. Low grade fever noted. Etiology right foot wound. No fever. Wound cultures grew beta hemolytic strep group B and Staph Aureus. Blood cultures show no growth. Currently being treated with Daptomycin. 2. Right Diabetic Foot Wound/ large Abscess/2nd toe osteomyelitis: Per wound care wound measurement 4.0 x 4.5 x 0.1. Significant erythema, swelling and soft necrotic tissue. Right foot second metatarsal. wound measurement 2.0 X 2.5 with significant erythema and swelling to the toe. Right plantar wound measurement 1.0 x 1.0 x 4.0 with serous sanguineos and purulent drainage with significant swelling. Right foot xray shows soft tissue swelling without plain film evidence of acute bony abnormality. Wound cultures grew beta hemolytic strep group B and Staph aureus. s/p I & D of right foot. on 11/05/18.. Follow up surgical cultures and wound cultures for ID and JOANNA's. CRP 3.2. MRI showed Abscesses 3.2x1.6x2.6 cm on the dorsum and plantar aspect of the forefoot at the second toe which may com municate with each other via the deep soft tissues between the first and second toes. Osteomyelitis involving the proximal phalanx of the second toe. No need for further debridement per Dr. Arredondo and Dr. Peralta. Continue local wound care. Arterial Doppler's reveal Monophasic waveform with spectral broadening of the right dorsalis pedis artery concerning for moderate to severe arterial insufficiency 3. Newly Diagnosed Type 2 Diabetic: on admission Hemoglobin A1C 10.2, Recommend tight glycemic control. 4. Morbid Obesity: Plan: Continue Daptomycin 750mg IV every 24 hours Contact isolation for MRSA Anticipate discharge on Daptomycin 750 mg IV every 24 hours for total 6 weeks ending 12-15-18 Antibiotics arranged with [facility] ID Clinic f/u in 3 weeks recommend close surgical follow-up -risk of amputation in the future Arrange outpatient wound care with case management [facility] M: [phone] O:[phone] Subjective Date of service: 11/13/18 Principal diagnosis: DM foot infection Objective - Constitutional Vitals: Vital Signs Temp Pulse Resp BP Pulse Ox 97.7 F 71 20 124/74 98 11/13/18 05:04 11/13/18 05:04 11/13/18 05:04 11/13/18 05:04 11/13/18 05:04 Temperature -Last 24 Hours Temperature 97.7 F Temperature 98.3 F Temperature 97.6 F Temperature 98.4 F - Labs CBC & Chem 7: 11/12/18 00:49 11/10/18 09:14 Labs: Abnormal lab results 11/12/18 11/12/18 11/12/18 Range/Units 11:37 16:47 21:26 POC Glucose 159 H 193 H 152 H (70-105)
--- NOTE | 2018-11-13 11:07 | Discharge Summary ---
Providers - Providers Date of Admission: 11/03/18 23:26 Date of discharge: 11/13/18 Attending physician: WOLFGANG MONTALVO 11/04/18 04:11 Consult to Physician [CONS] Routine Comment: Consulting Provider: GENESIS OGDEN Physician Instructions: Reason For Exam: abscess 11/04/18 04:12 Consult to Dietitian/Nutrition [CONS] Routine Physician Instructions: Reason For Exam: Reason for Consult: Diet education 11/04/18 06:23 Consult to Wound/ET Nurse [CONS] Routine Reason For Exam: wound eval 11/06/18 13:54 Consult to Physician [CONS] Routine Comment: Consulting Provider: AURORA PARSONS Physician Instructions: Reason For Exam: abx recommendation 11/07/18 16:17 Consult to Physician [CONS] Routine Comment: Consulting Provider: RODOLFO GUZMAN Physician Instructions: Reason For Exam: osteomylitis 11/10/18 00:01 PICC Line Insertion [Consult to PICC Line RN] [CONS] Urgent Reason For Exam: OPAT Type Line:: PICC 11/10/18 11:43 Consult to Case Management [CONS] Urgent Services Needed at Discharge: Home Health Services Notified:: no Additional Physician Instructions: [facility] M [phone] O [phone] F [phone] OUTPATIENT PARENTERAL ANTIBIOTIC THERAPY ORDERS Diagnoses: Right Diabetic Foot Wound/ large Abscess/2nd toe osteomyelitis Antimicrobial administration: Anticipate discharge on Daptomycin 750 mgIV every 24 hours for total 6 weeks ending 12-15-18 . Remove PICC line after last dose unless otherwise instructed. Lines: PICC Lab monitoring: CBC, BUN, Creatinine, ALT, AST, CK, CRP, ESR once a week preferly on Saturday morning. Please fax results to [phone] and call [phone] for critical lab results. Deb Ji NP/Barb Aponte MD Date: 11/10/18 [facility] Condition: Stable Hospital course: Brief History: 43-year-old man, obese with no medical problems comes emergency room because 2 weeks ago he stepped on a nail. His left foot became red, swollen and started draining bloody discharge, painful. he was admitted for further evaluation and management. Left foot xry: 1. Soft tissue swelling without plain film evidence of acute bony abnormality. If further imaging is required, MRI may be helpful. MRI right foot: 1. Abscesses on the dorsum and plantar aspect of the forefoot at the second toe which may communicate with each other via the deep soft tissues between the first and second toes. 2. Osteomyelitis involving the proximal phalanx of the second toe. Discharge diagnosis and management: Cellulitis and abscess of left foot with osteomylitis - cont IV fluid, cont daptomycin iv - Orthopedic was consulted in the emergency room - s/p Incision and drainage of right foot 11/05/18 at bedside - placed on IV morphine for pain, followed surgical Cx - Anticipate discharge on Daptomycin 750 mg IV every 24 hours for total 6 weeks ending - Order placed with case management and sent to [facility] for shyann approval with [facility] - ID Clinic f/u in 3 weeks, need outpatient wound care f/u New-onset diabetes - BG managed with accque Check fingersticks, insulin sliding scale and long acting - HbA1c 10.2 HTN, cont Norvasc Obesity, dietary recommendation when stable DVt Px, lovenox Physical exam; General appearance: Present: no acute distress, well-nourished - EENT Eyes: PERRL, EOM intact ENT: hearing intact, clear oral mucosa Ears: bilateral: normal - Neck Neck: supple, normal ROM - Respiratory Respiratory effort: normal Respiratory: bilateral: CTA - Cardiovascular Rhythm: regular Heart Sounds: Present: S1 & S2. Absent: gallop, rub Extremities: pulses intact, No edema, normal color, Full ROM - Gastrointestinal General gastrointestinal: Present: soft, non-tender, non-distended, normal bowel sounds - Integumentary Integumentary: clear, warm, dry - Musculoskeletal Musculoskeletal: other (right foot with wound dressing) - Neurologic Neurologic: moves all extremities - Psychiatric Psychiatric: memory intact, appropriate mood/affect, intact judgment & insight Disposition: DC-01 TO HOME OR SELFCARE Time spent for discharge: 34 minutes Core Measure Documentation - Palliative Care Palliative Care/ Comfort Measures: Not Applicable - Core Measures Any of the following diagnoses?: none Exam - Constitutional Vitals: Temp Pulse Resp BP Pulse Ox 97.7 F 71 20 124/74 98 11/13/18 05:04 11/13/18 05:04 11/13/18 05:04 11/13/18 05:04 11/13/18 05:04 Plan Activity: advance as tolerated Weight Bearing Status: Non-Weight Bearing Diet: diabetic Follow up with: KAREN MAXWELL MD [Primary Care Provider] - 7 Days Prescriptions: DAPTOmycin 750 mg IV Q24HR 35 Days vial metFORMIN [Glucophage] 500 mg PO BIDDIAB #60 tablet amLODIPine [Norvasc] 10 mg PO QDAY #30 tablet Insulin NPH/Regular [NovoLIN 70/30] 20 unit SUB-Q BIDDIAB 30 Days units Other Discharge Orders: Glucometer (Amb) Location: None Selected Glucometer supplies[Amb] Location: None Selected
[2018-11-13] MEDS: DAPTOmycin 750 MG in NACL 0.9% 100 ML IV SCH (11:17)
[2018-11-13 12:30] VITALS: BP 122/70
== END 2018-11-13 13:30 | disposition home or self-care (01) | DRG 872 ==
LOC: ED 17:33 → 3A 23:26
PROVIDERS: ADMIT Internal Medicine; ATTEND Internal Medicine
PROC: 0Y9M0ZZ Drainage of Right Foot, Open Approach (ICD-10-PCS; 2018-11-05)
PROC: 02HV33Z Insertion of Infusion Device into Superior Vena Cava, Percutaneous Approach (ICD-10-PCS; principal; 2018-11-10)
DX: A41.9 Sepsis, unspecified organism (principal); L02.612 Cutaneous abscess of left foot; L03.116 Cellulitis of left lower limb; M86.8X7 Other osteomyelitis, ankle and foot; L02.611 Cutaneous abscess of right foot; E66.01 Morbid (severe) obesity due to excess calories; W22.8XXA Striking against or struck by other objects, initial encounter; B95.1 Streptococcus, group B, as the cause of diseases classified elsewhere; B95.61 Methicillin susceptible Staphylococcus aureus infection as the cause of diseases classified elsewhere; S91.301A Unspecified open wound, right foot, initial encounter; E11.69 Type 2 diabetes mellitus with other specified complication; E11.9 Type 2 diabetes mellitus without complications; Z82.49 Family history of ischemic heart disease and other diseases of the circulatory system; Z68.35 Body mass index [BMI] 35.0-35.9, adult; Y93.89 Activity, other specified; Y92.098 Other place in other non-institutional residence as the place of occurrence of the external cause; Y99.8 Other external cause status
CPT/HCPCS: 36415; 71045; 80048; 80202; 82140; 82550; 82962; 83036; 85025; 85652; 86140; 87040; 87076; 87116; 87186; 90715; G0378; A9577; J0692; J0878; J1650; J1815; J2270; J2543; J3370; J7030; J7040

== ENCOUNTER 2018-11-18 10:27 | Outpatient (CLI) | payer OTHER ==
[2018-11-18 11:01] LABS: Hematocrit 47.2 % (35.5-45.6); Hemoglobin 15.3 gm/dl (11.8-15.2); Mean Corpuscular HGB Conc 33 % (32-34); Mean Corpuscular Volume 79 fl (84-94); Platelet Count 318 K/mm3 (140-440); Red Blood Count 6.01 M/mm3 (3.65-5.03); Red Cell Distribution Width 13.4 % (13.2-15.2)
[2018-11-18 11:28] LABS: Alanine Aminotransferase 51 units/L (7-56); Blood Urea Nitrogen 16 mg/dL (9-20)
[2018-11-18 11:46] LABS: Erythrocyte Sedimentation Rate 2 mm/Hr (0-20)
== END 2018-11-18 10:28 | disposition home or self-care (01) ==
LOC: LAB 10:27
DX: E13.9 Other specified diabetes mellitus without complications (principal); E66.9 Obesity, unspecified
CPT/HCPCS: 36415; 82550; 82565; 84450; 84460; 84520; 85027; 85652; 86140

== ENCOUNTER 2018-12-03 10:01 | Outpatient (CLI) | payer OTHER ==
[2018-12-03 10:28] LABS: Hematocrit 46.2 % (35.5-45.6); Hemoglobin 15.1 gm/dl (11.8-15.2); Mean Corpuscular HGB Conc 33 % (32-34); Mean Corpuscular Volume 79 fl (84-94); Platelet Count 223 K/mm3 (140-440); Red Blood Count 5.87 M/mm3 (3.65-5.03); Red Cell Distribution Width 13.7 % (13.2-15.2)
[2018-12-03 10:38] LABS: Alanine Aminotransferase 37 units/L (7-56); Blood Urea Nitrogen 13 mg/dL (9-20)
[2018-12-03 10:49] LABS: Erythrocyte Sedimentation Rate 2 mm/Hr (0-20)
== END 2018-12-03 10:02 | disposition home or self-care (01) ==
LOC: LAB 10:01
DX: I10 Essential (primary) hypertension (principal); E11.9 Type 2 diabetes mellitus without complications
CPT/HCPCS: 36415; 82550; 82565; 84450; 84460; 84520; 85027; 85652; 86140